=== PATIENT | male | born 1990 | race Caucasian/White ===

== ENCOUNTER 2016-09-12 19:52 | Inpatient (IN) | payer OTHER ==
[~2016-09-12] VITALS: Ht 170.2 cm; Wt 74.5 kg
[2016-09-12] MEDS ORDERED: SODIUM CHLORIDE 0.9% 1000ML 1,000 ML IV ONE (20:04)
[2016-09-12 20:41] LABS: BASO % 0.9 %; BASO ABS # 0.03 K/uL (0-0.2); COMPLETE YES; EOS % 0.3 %; HEMATOCRIT 37.9 % (42-52); IG% 0.3 %; LYMPH % 16.6 %; LYMPH ABS # 0.54 K/uL (1.2-3.4); MEAN CELL VOLUME 87.7 fL (80-100); MEAN CORPUSCULAR HEMOGLOBIN 30.1 pg (25-34); MEAN CORPUSCULAR HGB CONC 34.3 g/dl (32-36); MONO % 10.4 %; NEUT % 71.5 %; PLATELET COUNT 231 K/uL (130-400); RED BLOOD COUNT 4.32 M/uL (4.7-6.1); WHITE BLOOD COUNT 3.26 K/uL (4.8-10.8)
[2016-09-12 20:53] LABS: INR 1.1 (0.9-1.1); PARTIAL THROMBOPLASTIN RATIO 1.3; PROTHROMBIN TIME (PATIENT) 11.3 SECONDS (9.0-12.0)
[2016-09-12 21:00] LABS: BUN/CREATININE RATIO 8.5 (10-20); C-REACTIVE PROTEIN 8.82 mg/dl (0-0.29); CREATININE 0.99 mg/dl (0.60-1.40); POTASSIUM 3.4 mmol/L (3.5-5.1)
[2016-09-12 21:04] LABS: ALB/GLOB RATIO 1.1 (0.9-2); CKMB/CK RATIO 0.4 (0-3.0)
--- NOTE | 2016-09-12 21:05 | DIAGNOSTIC IMAGING REPORT ---
CHEST ONE VIEW PORTABLE CLINICAL HISTORY: Sepsis FEVER, CHILLS. COMPARISON STUDY: No previous studies for comparison. FINDINGS: The cardiac and mediastinal contours are normal. There is no evidence of focal pulmonary consolidation. There is no evidence of failure. No pleural effusions are visualized.[ IMPRESSION: No active disease in the chest. Electronically signed by: Jerome Lopez M.D. 09/12/2016 9:03 PM Dictated Date/Time: 09/12/2016 9:03 PM
[2016-09-12 21:26] LABS: URINE APPEARANCE TURBID (CLEAR); URINE BILIRUBIN NEG (NEG); URINE COLOR DK YELLOW; URINE NITRITE NEG (NEG); URINE PH >= 9.0 (4.5-7.5); URINE SPECIFIC GRAVITY 1.021 (1.000-1.030); UROBILINOGEN NEG (NEG); ZZUR CULT IF INDIC CLEAN CATCH NO
[2016-09-12 21:32] LABS: MANUAL MICROSCOPIC REQUIRED? NO; REVIEW REQ? NO; SULFASALICYLIC ACID NEG (NEG)
[2016-09-12] MEDS ORDERED: KETOROLAC TROMETHAMINE 30 MG/ML VIAL IV STA (21:48)
[2016-09-12 21:52] LABS: CALCIUM 8.5 mg/dl (8.5-10.1)
[2016-09-12 22:02] LABS: LYME DISEASE AB IGG NEG (NEG); LYME DISEASE AB IGM NEG (NEG)
[2016-09-12] MEDS ORDERED: OPTIRAY 320 IV PRN (22:15)
--- NOTE | 2016-09-12 22:15 | DIAGNOSTIC IMAGING REPORT ---
CT HEAD WITHOUT CONTRAST (CT) CLINICAL HISTORY: Severe headache COMPARISON STUDY: No previous studies for comparison. TECHNIQUE: Axial CT of the brain is performed from the vertex to the skull base. IV contrast was not administered for this examination. CT DOSE: FINDINGS: No intra or extra-axial mass lesions are visualized. There is no CT evidence of acute cortical infarction. There is no evidence of midline shift. There is no acute hemorrhage. No calvarial fractures are visualized. There is no evidence of pathologic ventricular dilatation. There is no evidence of acute sinusitis IMPRESSION: Normal noncontrast head CT. Electronically signed by: Jerome Lopez M.D. 09/12/2016 10:13 PM Dictated Date/Time: 09/12/2016 10:12 PM
--- NOTE | 2016-09-12 22:20 | DIAGNOSTIC IMAGING REPORT ---
CT ABD/PELVIS IV CONTRAST ONLY CLINICAL HISTORY: Generalized abdominal pain COMPARISON STUDY: None. TECHNIQUE: Following the IV administration of 115 mL of Optiray-320, CT scan of the abdomen and pelvis was performed from the lung bases to the proximal femurs. Images are reviewed in the axial, sagittal, and coronal planes. IV contrast was administered without complication. CT DOSE: 947.45 mGy.cm FINDINGS: Lower chest: The heart is normal in size and configuration, without pericardial effusion. The lung bases and pleural spaces are clear. Liver: The contrast-enhanced liver is normal in size, contour, and attenuation. There is no intrahepatic biliary ductal dilatation. The hepatic veins and portal veins are patent. Gallbladder: Unremarkable. Spleen: Normal in size and attenuation. Pancreas: Unremarkable. Adrenal glands: Unremarkable. Kidneys: There is symmetric renal cortical enhancement. The kidneys are normal in size without hydronephrosis. Bowel: There are no transition zones indicate bowel obstruction. The appendix appears normal. There is no acute diverticulitis. Peritoneum: There is no intraperitoneal free air or abdominal ascites. Vasculature: The abdominal aorta is normal in course and caliber. Slight increased density within the fat surrounding the celiac and superior mesenteric arteries, may be artifactual secondary to motion artifact Adenopathy: None. Pelvic viscera: The bladder, and pelvic viscera are unremarkable. Skeletal structures: No destructive osseous lesions are seen. The examination is slightly compromised secondary to motion artifact. IMPRESSION: 1. No acute intra-abdominal or pelvic findings 2. No evidence of bowel obstruction. No evidence of free air 3. Normal appendix. No evidence of acute diverticulitis Electronically signed by: Jerome Lopez M.D. 09/12/2016 10:18 PM Dictated Date/Time: 09/12/2016 10:14 PM
[2016-09-12] MEDS ORDERED: CEFTRIAXONE SOD INJ 1 GM ADDVIAL IV STA (22:26)
--- NOTE | 2016-09-12 23:44 | EMERGENCY ROOM VISIT NOTE ---
History Report prepared by Stanleyibjessica: Edwin Phelan Under the Supervision of: Dr. Saroj White D.O. First contact with patient: 19:59 Chief Complaint: FLANK PAIN Stated Complaint: ORANGE URINE - FEVER - [id number] PAIN History of Present Illness The patient is a 26 year old male who presents to the Emergency Room with complaints of a persistent fever beginning a few days ago. He also complains of abdominal pain, back pain, nausea, chills, and headache. He states that his urine appears orange in appearance. The patient also complains of night sweats. He notes that he has had very little to eat recently. He states that his symptoms began with his headache three days ago. The patient denies any cough. He chews tobacco and smokes marijuana. He states that he drinks alcohol occasionally. The patient denies any recent falls or trauma. He denies any recent travel. He also notes that he had a rash located on his abdomen earlier this week, but states that it is gone. Source of History: patient Onset: a few days ago Quality: other (fevers) Timing: other (persistent) Associated Symptoms: + fevers, + chills, + headache, + abdominal pain, + back pain, No cough Review of Systems See HPI for pertinent positives & negatives. A total of 10 systems reviewed and were otherwise negative. Past Medical & Surgical Medical Problems: (1) FUO (fever of unknown origin) (2) LFT elevation (3) No Known Active Medical Problems Family History No pertinent family history stated. Social History Smoking Status: Light Tobacco Smoker Occupation Status: employed Current/Historical Medications No Active Prescriptions or Reported Meds Allergies Coded Allergies: No Known Allergies (Unverified , 09/12/16) Physical Exam Vital Signs Date Time Temp Pulse Resp B/P (MAP) Pulse Ox O2 Delivery O2 Flow Rate FiO2 09/12/16 23:11 80 18 124/59 98 Room Air 09/12/16 21:10 128/63 09/12/16 20:26 97 Room Air 09/12/16 19:57 38.9 104 18 123/49 98 Room Air Physical Exam GENERAL: Patient is awake, alert, and in no acute distress. Patient is resting comfortably and showing no signs of anxiety EYES: The conjunctivae are clear. The pupils are round and reactive. EARS, NOSE, MOUTH AND THROAT: The nose is without any evidence of any deformity. Mucous membranes are dry, tongue is midline. Geographic tongue noted. NECK: The neck is nontender and supple. RESPIRATORY: Normal respiratory effort is noted there is no evidence of wheezing rhonchi or rales CARDIOVASCULAR: Tachycardic but regular. No definite murmurs noted to auscultation. GASTROINTESTINAL: The abdomen is soft with diffuse tenderness to palpation. Tenderness also noted in the RLQ but no guarding or rigidity appreciated. MUSCULOSKELETAL/EXTREMITIES: There is no evidence of gross deformity full range of motion is noted in the hips and shoulders SKIN: There is no obvious evidence of any rash. There are no petechiae, pallor or cyanosis noted. NEUROLOGIC: Patient is awake alert and oriented x3 strength is symmetric patellar reflexes are 2+ bilaterally. Medical Decision & Procedures ER Provider Diagnostic Interpretation: Radiology results as stated below per my review and radiologist interpretation: CHEST ONE VIEW PORTABLE FINDINGS: The cardiac and mediastinal contours are normal. There is no evidence of focal pulmonary consolidation. There is no evidence of failure. No pleural effusions are visualized.[ IMPRESSION: No active disease in the chest. Electronically signed by: Jerome Lopez M.D. CT HEAD WITHOUT CONTRAST (CT) FINDINGS: No intra or extra-axial mass lesions are visualized. There is no CT evidence of acute cortical infarction. There is no evidence of midline shift. There is no acute hemorrhage. No calvarial fractures are visualized. There is no evidence of pathologic ventricular dilatation. There is no evidence of acute sinusitis IMPRESSION: Normal noncontrast head CT. Electronically signed by: Jerome Lopez M.D. CT ABD/PELVIS IV CONTRAST ONLY FINDINGS: Lower chest: The heart is normal in size and configuration, without pericardial effusion. The lung bases and pleural spaces are clear. Liver: The contrast-enhanced liver is normal in size, contour, and attenuation. There is no intrahepatic biliary ductal dilatation. The hepatic veins and portal veins are patent. Gallbladder: Unremarkable. Spleen: Normal in size and attenuation. Pancreas: Unremarkable. Adrenal glands: Unremarkable. Kidneys: There is symmetric renal cortical enhancement. The kidneys are normal in size without hydronephrosis. Bowel: There are no transition zones indicate bowel obstruction. The appendix appears normal. There is no acute diverticulitis. Peritoneum: There is no intraperitoneal free air or abdominal ascites. Vasculature: The abdominal aorta is normal in course and caliber. Slight increased density within the fat surrounding the celiac and superior mesenteric arteries, may be artifactual secondary to motion artifact Adenopathy: None. Pelvic viscera: The bladder, and pelvic viscera are unremarkable. Skeletal structures: No destructive osseous lesions are seen. The examination is slightly compromised secondary to motion artifact. IMPRESSION: 1. No acute intra-abdominal or pelvic findings 2. No evidence of bowel obstruction. No evidence of free air 3. Normal appendix. No evidence of acute diverticulitis Electronically signed by: Jerome Lopez M.D. Laboratory Results Test 09/12/16 20:25 09/12/16 20:32 09/12/16 21:03 Immature Granulocyte % (Auto) 0.3 % White Blood Count 3.26 K/uL (4.8-10.8) Red Blood Count 4.32 M/uL (4.7-6.1) Hemoglobin 13.0 g/dL (14.0-18.0) Hematocrit 37.9 % (42-52) Mean Corpuscular Volume 87.7 fL (80-100) Mean Corpuscular Hemoglobin 30.1 pg (25-34) Mean Corpuscular Hemoglobin Concent 34.3 g/dl (32-36) Platelet Count 231 K/uL (130-400) Mean Platelet Volume 9.0 fL (7.4-10.4) Neutrophils (%) (Auto) 71.5 % Lymphocytes (%) (Auto) 16.6 % Monocytes (%) (Auto) 10.4 % Eosinophils (%) (Auto) 0.3 % Basophils (%) (Auto) 0.9 % Neutrophils # (Auto) 2.33 K/uL (1.4-6.5) Lymphocytes # (Auto) 0.54 K/uL (1.2-3.4) Monocytes # (Auto) 0.34 K/uL (0.11-0.59) Eosinophils # (Auto) 0.01 K/uL (0-0.5) Basophils # (Auto) 0.03 K/uL (0-0.2) Immature Granulocyte # (Auto) 0.01 K/uL (0.00-0.02) Erythrocyte Sedimentation Rate 6 mm/hr (0-14) Prothrombin Time 11.3 SECONDS (9.0-12.0) Prothromb Time International Ratio 1.1 (0.9-1.1) Activated Partial Thromboplast Time 33.8 SECONDS (21.0-31.0) Partial Thromboplastin Ratio 1.3 Creatine Kinase MB 1.8 ng/ml (0.5-3.6) Creatine Kinase MB Ratio 0.4 (0-3.0) C-Reactive Protein 8.82 mg/dl (0-0.29) Globulin 3.3 gm/dl (2.5-4.0) Albumin/Globulin Ratio 1.1 (0.9-2) Lipase 81 U/L (73-393) Lyme Disease IgG Antibody NEG (NEG) Lyme Disease IgM Antibody NEG (NEG) Hepatitis B Surface Antigen NEG (NEG) Hepatitis C Antibody PRELIM POS (NEG) Monoscreen NEG (NEG) Bedside Lactic Acid Venous 0.65 mmol/L (0.90-1.70) Urine Color DK YELLOW Urine Appearance TURBID (CLEAR) Urine pH >= 9.0 (4.5-7.5) Urine Specific [place] 1.021 (1.000-1.030) Urine Protein NEG (NEG) Urine Glucose (UA) NEG (NEG) Urine Ketones TRACE (NEG) Urine Occult Blood NEG (NEG) Urine Nitrite NEG (NEG) Urine Bilirubin NEG (NEG) Urine Urobilinogen NEG (NEG) Urine Leukocyte Esterase TRACE (NEG) Urine WBC (Auto) 0 /hpf (0-5) Urine RBC (Auto) 0-4 /hpf (0-4) Urine Hyaline Casts (Auto) 0 /lpf (0-5) Urine Epithelial Cells (Auto) 5-10 /lpf (0-5) Urine Bacteria (Auto) NEG (NEG) Laboratory results per my review. Medications Administered Medications (Trade) Dose Ordered Sig/Lise Route Start Time Stop Time Status Last Admin Dose Admin Sodium Chloride 1,000 ml @ 999 mls/hr Q1H1M ONCE IV 09/12/16 20:04 09/12/16 21:04 DC 09/12/16 20:04 999 MLS/HR Ketorolac Tromethamine (Toradol Inj) 30 mg NOW STAT IV 09/12/16 21:48 09/12/16 21:49 DC 09/12/16 21:48 30 MG Ceftriaxone Sodium (Rocephin Inj) 1 gm NOW STAT IV 09/12/16 22:26 09/13/16 11:14 DC 6/21/17 22:26 1 GM ED Course 2003: The patient was evaluated in room A2. A complete history and physical examination were performed. 2003: Ordered NSS 1,000 ml @ 999 mls/hr IV. 2147: Ordered Toradol Inj 30 mg IV. 2225: Ordered Rocephin Inj 1 gm IV. 2315: Upon reevaluation, the patient is resting comfortably. I discussed his case with him. He admits to a history of IV drug use. I discussed results and treatment plan with the patient. He verbalizes agreement and understanding. I spoke with Dr. Agudelo of [facility] [place] The patient will be evaluated for further management and care. Medical Decision Differential diagnosis: Etiologies such as viral syndrome, otitis, pharyngitis, pneumonia, influenza, meningitis, urinary tract infection, sepsis, bacteremia, as well as others were entertained. Nursing notes reviewed. Additional history is obtained from the patient's significant other. The patient is a 26-year-old male who presented to the emergency department for an evaluation of fever headache muscle aches and abdominal pain. The patient does have a history of IV drug use in the past. The patient also noted a rash over his abdominal wall and was concerned about the possibility of a tick borne illness. The patient was treated with IV fluids IV pain medicine and IV antibiotic emergency department. He was reevaluated multiple times. I discussed patient's laboratory and radiographic studies with him. No definite source for his fever could be found but he did have a mild elevation in his liver function studies and a preliminary positive hepatitis C. Because of the patient's comorbidities and past medical history and no definite source for his fever I discussed his case with the on-call [facility] hospitalist. They've agreed to evaluate the patient in the emergency department for further management and disposition. Consults Time Called: [phone] Consulting Physician: Dr. Agudelo -[facility] [place] Returned Call: [phone] I discussed the patient's case with []. The patient will be evaluated for further management. Impression Primary Impression: Fever of unknown origin Additional Impressions: Hepatitis IV drug abuse Scribe Attestation The scribe's documentation has been prepared under my direction and personally reviewed by me in its entirety. I confirm that the note above accurately reflects all work, treatment, procedures, and medical decision making performed by me. Departure Information Dispostion Being Evaluated By Hospitalist Prescriptions No Active Prescriptions or Reported Meds Referrals No Doctor, Assigned (PCP) Patient Instructions My [facility] Problem Qualifiers
[2016-09-13] MEDS ORDERED: POLYETHYLENE (MIRALAX) 17 GM PACK PO PRN (01:00)
[2016-09-13] MEDS ORDERED: ONDANSETRON INJ 2 MG/ML 2 ML VIAL IV PRN (01:00)
[2016-09-13] MEDS ORDERED: ALUMINUM/MAGNESIUM/SIMETH (MAALOX MAX) 30 ML UDC PO PRN (01:00)
[2016-09-13] MEDS ORDERED: MAGNESIUM HYDROXIDE SUSP 30 ML UDC PO PRN (01:00)
--- NOTE | 2016-09-13 01:53 | History and Physical ---
History & Physical Date & Time of Service: Sep 13, 2016 at 01:13 Chief Complaint: [place] Urine - Fever - [id number]-Hhdx Pain Primary Care Physician: No Doctor, Assigned History of Present Illness Source: patient 26 y/o M Hx IVDU - last use ~ 1 month prior. Presents with fevers and night sweats for 5 days. Describes drenching sweats over the last 2 nights. The pt states that on he had found a dear tick on himself after walking around a wooded area. He denies CP, SOB, a productive cough, diarrhea or dysuria. He states that his urine has been orange in color and reports some upper abdominal discomfort with inspiration. He had a generalized rash 5 days prior which has resolved. The pts LFTs were elevated on intial labs and a HEP C screen is preliminarily + . His CK is elevated and he has mild neutropenia and anemia. A fever of 39 was confirmed on arrival to the ER. There is no clear source of infection at present although he is at risk for endocarditis and tick-borne disease. Family History Both parents are living Father had an ablation procedure for SVT Mother recently diagnosed with [place] Social History Smokes Marijuana frequently - does not smoke cigarettes. Rare alcohol. History of opiate use since age 17. IVDU since age 20 - intermittent - last relapsed 25 days prior - denies any current use or withdrawal symptoms. Alcohol Use: occasionally Occupational Status: employed Multi-Drug Resistant Organisms History of MDRO: No Allergies Coded Allergies: No Known Allergies (Unverified , 09/12/16) Home Medications No Active Prescriptions or Reported Meds Review of Systems Constitutional: + fever, + chills, + sweats, No weight loss Eyes: No worsening of vision, No eye pain ENT: No hearing loss, No unusual epistaxis, No nasal symptoms Respiratory: No cough, No sputum, No wheezing Cardiovascular: No chest pain, No orthopnea, No PND Abdomen: + pain (Upper abdominal pain / discomfort with inspiration), No nausea , No vomiting Musculoskeletal: No joint pain, No muscle pain Genitourinary - Male: + problem reported (Reports orange urine), No hematuria, No dysuria Neurologic: No memory loss, No paralysis, No weakness Psychiatric: No depression symptoms Endocrine: No fatigue Hematologic / Lymphatic: No abnormal bleeding/bruising Integumentary: + rash (generalized rash 5 days prior) Allergic / Immunologic: No environmental allergies Physical Exam Vital Signs Date Time Temp Pulse Resp B/P (MAP) Pulse Ox O2 Delivery O2 Flow Rate FiO2 09/12/16 23:11 80 18 124/59 98 Room Air 09/12/16 21:10 128/63 09/12/16 20:26 97 Room Air 09/12/16 19:57 38.9 104 18 123/49 98 Room Air General Appearance: WD/WN, no apparent distress Head: normocephalic Eyes: normal inspection ENT: normal ENT inspection, pharynx normal Neck: supple, no JVD Respiratory/Chest: chest non-tender, lungs clear, normal breath sounds, no respiratory distress, no accessory muscle use Cardiovascular: regular rate, rhythm, no edema, no gallop Abdomen/GI: normal bowel sounds, non tender, soft Back: normal inspection, no CVA tenderness, no muscle spasm, normal range of motion Extremities/Musculoskelatal: normal inspection, normal range of motion Neurologic/Psych: endless bed drum sander II-XII nml as tested, no motor/sensory deficits, alert, normal mood/affect, normal reflexes, oriented x 3 Skin: normal color, warm/dry, no rash Diagnostics Laboratory Results Results Past 24 Hours Test 09/12/16 20:25 09/12/16 20:32 09/12/16 21:03 Range/Units White Blood Count 3.26 4.8-10.8 K/uL Red Blood Count 4.32 4.7-6.1 M/uL Hemoglobin 13.0 14.0-18.0 g/dL Hematocrit 37.9 42-52 % Mean Corpuscular Volume 87.7 80-100 fL Mean Corpuscular Hemoglobin 30.1 25-34 pg Mean Corpuscular Hemoglobin Concent 34.3 32-36 g/dl Platelet Count 231 130-400 K/uL Mean Platelet Volume 9.0 7.4-10.4 fL Neutrophils (%) (Auto) 71.5 % Lymphocytes (%) (Auto) 16.6 % Monocytes (%) (Auto) 10.4 % Eosinophils (%) (Auto) 0.3 % Basophils (%) (Auto) 0.9 % Neutrophils # (Auto) 2.33 1.4-6.5 K/uL Lymphocytes # (Auto) 0.54 1.2-3.4 K/uL Monocytes # (Auto) 0.34 0.11-0.59 K/uL Eosinophils # (Auto) 0.01 0-0.5 K/uL Basophils # (Auto) 0.03 0-0.2 K/uL RDW Standard Deviation 40.8 36.4-46.3 fL RDW Coefficient of Variation 12.6 11.5-14.5 % Immature Granulocyte % (Auto) 0.3 % Immature Granulocyte # (Auto) 0.01 0.00-0.02 K/uL Erythrocyte Sedimentation Rate 6 0-14 mm/hr Prothrombin Time 11.3 9.0-12.0 SECONDS Prothromb Time International Ratio 1.1 0.9-1.1 Activated Partial Thromboplast Time 33.8 21.0-31.0 SECONDS Partial Thromboplastin Ratio 1.3 Sodium Level 137 136-145 mmol/L Potassium Level 3.4 3.5-5.1 mmol/L Chloride Level 101 98-107 mmol/L Carbon Dioxide Level 28 21-32 mmol/L Anion Gap 8.0 3-11 mmol/L Blood Urea Nitrogen 8 7-18 mg/dl Creatinine 0.99 0.60-1.40 mg/dl Est Creatinine Clear Calc Drug Dose 106.7 ml/min Estimated GFR () 122.2 Estimated GFR (Non- 105.4 BUN/Creatinine Ratio 8.5 10-20 Random Glucose 102 70-99 mg/dl Calcium Level 8.5 8.5-10.1 mg/dl Magnesium Level 2.0 1.8-2.4 mg/dl Total Bilirubin 0.7 0.2-1 mg/dl Aspartate Amino Transf (AST/SGOT) 345 15-37 U/L Alanine Aminotransferase (ALT/SGPT) 635 12-78 U/L Alkaline Phosphatase 72 45-117 U/L Total Creatine Kinase 494 39-308 U/L Creatine Kinase MB 1.8 0.5-3.6 ng/ml Creatine Kinase MB Ratio 0.4 0-3.0 C-Reactive Protein 8.82 0-0.29 mg/dl Total Protein 7.0 6.4-8.2 gm/dl Albumin 3.7 3.4-5.0 gm/dl Globulin 3.3 2.5-4.0 gm/dl Albumin/Globulin Ratio 1.1 0.9-2 Lipase 81 73-393 U/L Lyme Disease IgG Antibody NEG NEG Lyme Disease IgM Antibody NEG NEG Hepatitis B Surface Antigen NEG NEG Hepatitis C Antibody PRELIM POS NEG Monoscreen NEG NEG Bedside Lactic Acid Venous 0.65 0.90-1.70 mmol/L Urine Color DK YELLOW Urine Appearance TURBID CLEAR Urine pH >= 9.0 4.5-7.5 Urine Specific [place] 1.021 1.000-1.030 Urine Protein NEG NEG Urine Glucose (UA) NEG NEG Urine Ketones TRACE NEG Urine Occult Blood NEG NEG Urine Nitrite NEG NEG Urine Bilirubin NEG NEG Urine Urobilinogen NEG NEG Urine Leukocyte Esterase TRACE NEG Urine WBC (Auto) 0 0-5 /hpf Urine RBC (Auto) 0-4 0-4 /hpf Urine Hyaline Casts (Auto) 0 0-5 /lpf Urine Epithelial Cells (Auto) 5-10 0-5 /lpf Urine Bacteria (Auto) NEG NEG Microbiology Results 09/12/16 Blood Culture, Received Pending 09/12/16 Blood Culture, Received Pending Impression Assessment and Plan 26 y/o M Hx IVDU - last use ~ 1 month prior. Presents with fevers and night sweats for 5 days. Describes drenching sweats over the last 2 nights. The pt states that on he had found a dear tick on himself after walking around a wooded area. He denies CP, SOB, a productive cough, diarrhea or dysuria. He states that his urine has been orange in color and reports some upper abdominal discomfort with inspiration. He had a generalized rash 5 days prior which has resolved. The pts LFTs were elevated on intial labs and a HEP C screen is preliminarily + . His CK is elevated and he has mild neutropenia and anemia. A fever of 39 was confirmed on arrival to the ER. There is no clear source of infection at present although he is at risk for endocarditis and tick-borne disease. 1) FUO - differential would include subacute endocarditis, tick-borne illness, HIV or other viral infection. Pt placed on Ceftriaxone and Vanc pending blood culture and blood smear results. We will consult ID. If cultures are +, would obtain an echo. Parvovirus, EBV, HIV testing requested. 2) Hep C +, LFTs elevated - explained to pt that treatment is available - will trend LFTs as may be in acute phase 3) CK is elevated - may be developing mild rhabdo - aggressive IVF - recheck AM 4) IVDU - states he is not currently using - has not expressed need for treatment Full code - Heparin prophylaxis - total time for this admit including review of labs, meds, imaging - discussion with pt and ER attending 36 min Level of Care Med/Surg Resuscitation Status FULL RESUSCITATION VTE Prophylaxis VTE Risk Assessment Done? Y/N: Yes Risk Level: Moderate Given or contraindicated: Unfractionated heparin SQ
[2016-09-13 02:00] VITALS: BP 123/70; PULSE 71; TEMP 36.9; O2SAT 99; Ht 170.2 cm; Wt 74.5 kg
[2016-09-13] MEDS: ZOLPIDEM TARTRATE 5 MG TAB PO PRN ×2 (02:24→23:42)
[2016-09-13] MEDS ORDERED: VANCOMYCIN INJ 2,000 MG in SODIUM CHLORIDE 0.9% 500ML 500 ML IV STA (02:40)
[2016-09-13] MEDS ORDERED: VANCOMYCIN CONSULT ACTIVE PRN (02:45)
[2016-09-13] MEDS: NSS + 20MEQ KCL 1000ML 1,000 ML IV SCH ×2 (03:19→09:52)
[2016-09-13] MEDS: ACETAMINOPHEN 325 MG TAB PO PRN ×2 (05:14→16:01)
[2016-09-13] MEDS: HEPARIN SOD 5000 UNIT/0.5 ML CARP SQ SCH ×3 (06:30→21:27)
[2016-09-13 07:10] VITALS: BP 114/68; PULSE 91; TEMP 36.8; O2SAT 96
[2016-09-13 07:29] LABS: HEMATOCRIT 38.2 % (42-52); MEAN CELL VOLUME 88.8 fL (80-100); MEAN CORPUSCULAR HEMOGLOBIN 29.8 pg (25-34); MEAN CORPUSCULAR HGB CONC 33.5 g/dl (32-36); PLATELET COUNT 190 K/uL (130-400); WHITE BLOOD COUNT 3.15 K/uL (4.8-10.8)
[2016-09-13 08:03] LABS: BUN/CREATININE RATIO 8.4 (10-20); CALCIUM 7.9 mg/dl (8.5-10.1); CREATININE 0.93 mg/dl (0.60-1.40); MAGNESIUM 2.1 mg/dl (1.8-2.4); POTASSIUM 3.2 mmol/L (3.5-5.1)
--- NOTE | 2016-09-13 09:04 | Pharmacy Progress Note ---
Pharmacy Abx Initial Consult Date of Service Sep 13, 2016. Pharmacy Dosing Scope Date of Consult: 09-13 Consultation requested by: Dr. Agudelo Pharmacy is consulted to initiate vancomycin dosing therapy, order appropriate labs and adjust drug dose/frequency. Subjective The patient is a 26 year old male admitted on Sep 13, 2016 at 00:50. Objective Height (Feet): 5 Height (Inches): 7.00 Weight (Kilograms): 74.500 Vital Signs (Past 12Hrs) Vital Signs Past 12 Hours Date Time Temp Pulse Resp B/P (MAP) Pulse Ox O2 Delivery O2 Flow Rate FiO2 09/13/16 08:00 Room Air 09/13/16 07:10 36.8 91 16 114/68 (83) 96 Room Air 09/13/16 02:00 36.9 71 20 123/70 99 Room Air 09/13/16 01:10 81 18 124/59 98 09/12/16 23:11 80 18 124/59 98 Room Air 09/12/16 21:10 128/63 Lab Results (24Hrs) Laboratory Tests (24 Hours) Test 09/12/16 20:25 09/13/16 07:12 C-Reactive Protein 8.82 mg/dl (0-0.29) H Erythrocyte Sedimentation Rate 6 mm/hr (0-14) White Blood Count 3.26 K/uL (4.8-10.8) L 3.15 K/uL (4.8-10.8) L Red Blood Count 4.32 M/uL (4.7-6.1) L Hemoglobin 13.0 g/dL (14.0-18.0) L Hematocrit 37.9 % (42-52) L Mean Corpuscular Volume 87.7 fL (80-100) Mean Corpuscular Hemoglobin 30.1 pg (25-34) Mean Corpuscular Hemoglobin Concent 34.3 g/dl (32-36) Platelet Count 231 K/uL (130-400) Mean Platelet Volume 9.0 fL (7.4-10.4) Neutrophils (%) (Auto) 71.5 % Lymphocytes (%) (Auto) 16.6 % Monocytes (%) (Auto) 10.4 % Eosinophils (%) (Auto) 0.3 % Basophils (%) (Auto) 0.9 % Neutrophils # (Auto) 2.33 K/uL (1.4-6.5) Lymphocytes # (Auto) 0.54 K/uL (1.2-3.4) L Monocytes # (Auto) 0.34 K/uL (0.11-0.59) Eosinophils # (Auto) 0.01 K/uL (0-0.5) Basophils # (Auto) 0.03 K/uL (0-0.2) Total Creatine Kinase 414 U/L (39-308) H Micro Results Date/Time Source Procedure Growth Status 09/12/16 20:25 Blood Blood Culture Pending Received 09/12/16 20:18 Blood Blood Culture Pending Received Assessment & Plan Patient started on vancomycin to rule out endocarditis infection. Presented to ED with fever, night sweats x 5 days, hx of IV drug abuse, recent tick exposure. Blood cultures are pending. Patient also receiving rocephin. Vancomycin: * LD of vancomycin 2000 mg (~26 mg/kg) iv x 1 given * Will order MD of vancomycin 1250 mg (~16 mg/kg) iv q 8 hrs to achieve an estimated trough ~15-20 mcg/ml (goal for endocarditis) * Estimated kinetics: t1/2~7 hrs, ke~0.09 hr-1, CrCl ~113 ml/min * Will plan to order trough prior to the 1000 dose on 09/14 to ensure therapeutic * Of note, abx ordered as empiric (x48 hr) therefore will adjust duration as needed
[2016-09-13] MEDS ORDERED: POTASSIUM CHLORIDE 10 MEQ TABCR PO STA (09:07)
[2016-09-13] MEDS ORDERED: VANCOMYCIN INJ 1,250 MG in SODIUM CHLORIDE 0.9% 250ML 250 ML IV SCH (10:00)
--- NOTE | 2016-09-13 11:17 | Medical Consult ---
Consultation Date of Consultation: Sep 13, 2016. Attending Physician: Jasmine Cam MD Reason for Consultation: FUO x 5 days History of Present Illness Patient is a 26-year-old male who presented to the emergency department with complaints of a fever for approximately 5 days. The patient been experiencing mild abdominal pain in the upper quadrants especially the right, mid back pain, nausea, chills, headache, myalgias, orange urine, and night. The patient states that his appetite recently has also been decreased. The patient does have history of IV drug abuse, and he does also use marijuana and chewing tobacco. The patient states that on , he did find a tick on himself and had to remove this tick. He does not recall any other tick bites recently. He does also recall having a rash on his abdomen prior to admission which has since resolved. His rash was round and speckled in nature. Since admission, the patient does have blood cultures drawn which are pending. He had a hepatitis panel completed. Hepatitis-B E was negative, but preliminary hepatitis C is positive. [place] screen was negative. Lyme screens were negative. The patient is mildly pancytopenic. His ESR was 6, and C reactive protein was 8.82. His LFTs are slightly elevated. On admission, his AST was 345, ALT 635, and alkaline phosphatase was 72. His total creatinine kinase was 494. His creatinine was 0.99. Urinalysis showed trace leukocyte esterase, trace ketones, and a pH of greater than 9. CT of the abdomen/pelvis showed no acute intra-abdominal or pelvic findings, no evidence of bowel obstruction, and normal appendix and gallbladder. The liver was noted to be. He did have a head CT scan completed which was normal. Chest x-ray showed no active disease in the chest. He was empirically started on IV vancomycin and ceftriaxone. He states that his symptoms have only slightly improved. He did have a fever of 38.9 C on admission. He has been afebrile since. The patient otherwise denies icterus, jaundice, jojo-colored stools, or abdominal pain prior to this episode. Past Medical/Surgical History Medical Problems: (1) Fever of unknown origin Status: Acute (2) Hepatitis Status: Acute (3) IV drug abuse Status: Acute Medical Problems: (1) FUO (fever of unknown origin) (2) LFT elevation (3) No Known Active Medical Problems Family History Noncontributory Social History Smoking Status: Unknown if Ever Smoked Alcohol Use: occasionally Occupation Status: employed Allergies Coded Allergies: No Known Allergies (Unverified , 09/12/16) Current Inpatient Medications Current Inpatient Medications Medications (Trade) Dose Ordered Sig/Lise Route Start Time Stop Time Status Last Admin Dose Admin Ioversol (Optiray 320) 115 ml UD PRN IV 09/12/16 22:15 09/16/16 22:14 Heparin Sodium (Porcine) (Heparin Sq 5000 Unit/0.5ml) 5,000 unit Q8H SQ 09/13/16 06:00 10/13/16 05:59 Acetaminophen (Tylenol Tab) 650 mg Q4H PRN PO 09/13/16 01:00 10/13/16 00:59 09/13/16 05:14 650 MG Al Hydrox/Mg Hydrox/Simethicone (Maalox Max Susp) 15 ml Q4H PRN PO 09/13/16 01:00 10/13/16 00:59 Magnesium Hydroxide (Milk Of Magnesia Susp) 30 ml Q6H PRN PO 09/13/16 01:00 10/13/16 00:59 Polyethylene (Miralax Powder Packet) 17 gm DAILY PRN PO 09/13/16 01:00 10/13/16 00:59 Zolpidem Tartrate (Ambien Tab) 5 mg HSZ PRN PO 09/13/16 01:00 10/13/16 00:59 09/13/16 02:24 5 MG Ondansetron HCl (Zofran Inj) 4 mg Q6H PRN IV 09/13/16 01:00 10/13/16 00:59 Ceftriaxone Sodium 1 gm/ Dextrose 50 ml @ 100 mls/hr Q24H IV 09/13/16 22:00 09/14/16 21:59 Potassium Chloride/Sodium Chloride 1,000 ml @ 150 mls/hr Q6H40M IV 09/13/16 03:00 09/13/16 16:19 09/13/16 09:52 150 MLS/HR Vancomycin HCl (Consult) 1 ea UD PRN N/A 09/13/16 02:45 10/13/16 02:44 Vancomycin HCl 1250 mg/Sodium Chloride 275 ml @ 125 mls/hr Q8H IV 09/13/16 10:00 09/15/16 09:59 09/13/16 09:51 125 MLS/HR Review of Systems Constitutional: + fever, + chills, + sweats, + fatigue, + problem reported ( headache) Eyes: No worsening of vision ENT: + problem reported (tongue discoloration, white on and off, chews tobacco chronically), No hearing loss, No sore throat Respiratory: + problem reported (abdominal pain with deep breath), No cough, No shortness of breath Cardiovascular: No chest pain, No palpitations Abdomen: + pain, No nausea, No vomiting, No diarrhea, No constipation, No problem reported (no jojo colored stools/stool changes) Musculoskeletal: + muscle pain (aches), No joint pain Genitourinary - Male: + problem reported (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), No hematuria, No dysuria, No urinary frequency, No urinary urgency Neurologic: No numbness/tingling Hematologic / Lymphatic: + night sweats Integumentary: + rash (on abdomen which was round and speckled, now resolved) Physical Exam Date Time Temp Pulse Resp B/P (MAP) Pulse Ox O2 Delivery O2 Flow Rate FiO2 09/13/16 08:00 Room Air 09/13/16 07:10 36.8 91 16 114/68 (83) 96 Room Air 09/13/16 02:00 36.9 71 20 123/70 99 Room Air 09/13/16 01:10 81 18 124/59 98 09/12/16 23:11 80 18 124/59 98 Room Air 09/12/16 21:10 128/63 09/12/16 20:26 97 Room Air 09/12/16 19:57 38.9 104 18 123/49 98 Room Air General Appearance: WD/WN, no apparent distress Head: normocephalic, atraumatic Eyes: normal inspection, sclerae normal ENT: hearing grossly normal Neck: supple, trachea midline Respiratory/Chest: chest non-tender, lungs clear, normal breath sounds, no respiratory distress, no accessory muscle use Cardiovascular: regular rate, rhythm, no murmur Abdomen/GI: normal bowel sounds, soft, no organomegaly, + tenderness (right upper quadrant especially with deep breath) Back: normal inspection Extremities/Musculoskelatal: normal inspection, normal range of motion Neurologic/Psych: alert, normal mood/affect, oriented x 3 Skin: normal color, warm/dry, no rash Laboratory Results CT ABD/PELVIS IV CONTRAST ONLY CLINICAL HISTORY: Generalized abdominal pain COMPARISON STUDY: None. TECHNIQUE: Following the IV administration of 115 mL of Optiray-320, CT scan of the abdomen and pelvis was performed from the lung bases to the proximal femurs. Images are reviewed in the axial, sagittal, and coronal planes. IV contrast was administered without complication. CT DOSE: 947.45 mGy.cm FINDINGS: Lower chest: The heart is normal in size and configuration, without pericardial effusion. The lung bases and pleural spaces are clear. Liver: The contrast-enhanced liver is normal in size, contour, and attenuation. There is no intrahepatic biliary ductal dilatation. The hepatic veins and portal veins are patent. Gallbladder: Unremarkable. Spleen: Normal in size and attenuation. Pancreas: Unremarkable. Adrenal glands: Unremarkable. Kidneys: There is symmetric renal cortical enhancement. The kidneys are normal in size without hydronephrosis. Bowel: There are no transition zones indicate bowel obstruction. The appendix appears normal. There is no acute diverticulitis. Peritoneum: There is no intraperitoneal free air or abdominal ascites. Vasculature: The abdominal aorta is normal in course and caliber. Slight increased density within the fat surrounding the celiac and superior mesenteric arteries, may be artifactual secondary to motion artifact Adenopathy: None. Pelvic viscera: The bladder, and pelvic viscera are unremarkable. Skeletal structures: No destructive osseous lesions are seen. The examination is slightly compromised secondary to motion artifact. IMPRESSION: 1. No acute intra-abdominal or pelvic findings 2. No evidence of bowel obstruction. No evidence of free air 3. Normal appendix. No evidence of acute diverticulitis Item Value Date Time Blood Culture Received 09/12/162024 Blood Pending Blood Culture Received 09/12/162017 Blood Pending Last 24 Hours Test 09/12/16 20:25 09/12/16 20:32 09/12/16 21:03 09/13/16 07:12 White Blood Count 3.26 K/uL 3.15 K/uL Red Blood Count 4.32 M/uL 4.30 M/uL Hemoglobin 13.0 g/dL 12.8 g/dL Hematocrit 37.9 % 38.2 % Mean Corpuscular Volume 87.7 fL 88.8 fL Mean Corpuscular Hemoglobin 30.1 pg 29.8 pg Mean Corpuscular Hemoglobin Concent 34.3 g/dl 33.5 g/dl Platelet Count 231 K/uL 190 K/uL Mean Platelet Volume 9.0 fL 9.0 fL Neutrophils (%) (Auto) 71.5 % Lymphocytes (%) (Auto) 16.6 % Monocytes (%) (Auto) 10.4 % Eosinophils (%) (Auto) 0.3 % Basophils (%) (Auto) 0.9 % Neutrophils # (Auto) 2.33 K/uL Lymphocytes # (Auto) 0.54 K/uL Monocytes # (Auto) 0.34 K/uL Eosinophils # (Auto) 0.01 K/uL Basophils # (Auto) 0.03 K/uL RDW Standard Deviation 40.8 fL 41.6 fL RDW Coefficient of Variation 12.6 % 12.9 % Immature Granulocyte % (Auto) 0.3 % Immature Granulocyte # (Auto) 0.01 K/uL Erythrocyte Sedimentation Rate 6 mm/hr Prothrombin Time 11.3 SECONDS Prothromb Time International Ratio 1.1 Activated Partial Thromboplast Time 33.8 SECONDS Partial Thromboplastin Ratio 1.3 Sodium Level 137 mmol/L 141 mmol/L Potassium Level 3.4 mmol/L 3.2 mmol/L Chloride Level 101 mmol/L 107 mmol/L Carbon Dioxide Level 28 mmol/L 26 mmol/L Anion Gap 8.0 mmol/L 8.0 mmol/L Blood Urea Nitrogen 8 mg/dl 8 mg/dl Creatinine 0.99 mg/dl 0.93 mg/dl Est Creatinine Clear Calc Drug Dose 106.7 ml/min 113.6 ml/min Estimated GFR () 122.2 131.8 Estimated GFR (Non- 105.4 113.7 BUN/Creatinine Ratio 8.5 8.4 Random Glucose 102 mg/dl 135 mg/dl Calcium Level 8.5 mg/dl 7.9 mg/dl Magnesium Level 2.0 mg/dl 2.1 mg/dl Total Bilirubin 0.7 mg/dl 0.6 mg/dl Aspartate Amino Transf (AST/SGOT) 345 U/L 344 U/L Alanine Aminotransferase (ALT/SGPT) 635 U/L 612 U/L Alkaline Phosphatase 72 U/L 69 U/L Total Creatine Kinase 494 U/L 414 U/L Creatine Kinase MB 1.8 ng/ml Creatine Kinase MB Ratio 0.4 C-Reactive Protein 8.82 mg/dl Total Protein 7.0 gm/dl 6.1 gm/dl Albumin 3.7 gm/dl 3.1 gm/dl Globulin 3.3 gm/dl Albumin/Globulin Ratio 1.1 Lipase 81 U/L Lyme Disease IgG Antibody NEG Lyme Disease IgM Antibody NEG Hepatitis B Surface Antigen NEG Hepatitis C Antibody PRELIM POS Monoscreen NEG Bedside Lactic Acid Venous 0.65 mmol/L Urine Color DK YELLOW Urine Appearance TURBID Urine pH >= 9.0 Urine Specific [place] 1.021 Urine Protein NEG Urine Glucose (UA) NEG Urine Ketones TRACE Urine Occult Blood NEG Urine Nitrite NEG Urine Bilirubin NEG Urine Urobilinogen NEG Urine Leukocyte Esterase TRACE Urine WBC (Auto) 0 /hpf Urine RBC (Auto) 0-4 /hpf Urine Hyaline Casts (Auto) 0 /lpf Urine Epithelial Cells (Auto) 5-10 /lpf Urine Bacteria (Auto) NEG Direct Bilirubin 0.2 mg/dl Assessment & Plan Patient with mild pancytopenia, fever, elevated LFTs, recent tick exposure, 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 The patient is currently on IV Vancomycin and Ceftriaxone. Lyme screens were negative. This patient's picture is slightly confused by the positive Hep C screen. Most of his symptoms and lab value changes coult be contributed to Hepatitis C, but on the other hand with recent tick exposure, could be contributed to Anaplasmosis. Recommend D/C of Vancomycin and Ceftriaxone. Will start PO Doxycycline 100 mg BID x 14 days for possible anaplasmosis. Will await confirmatory tests for Hep C and treat as outpatient if positive. Will also order Anaplasma serology. We will follow. case reviewed and agree with above assessment
[2016-09-13] MEDS: DOXYCYCLINE HYCLATE 100 MG CAP PO SCH ×2 (12:41→20:43)
[2016-09-13 15:55] VITALS: BP 111/68; PULSE 67; TEMP 37.3; O2SAT 99
[2016-09-13 16:00] VITALS: O2SAT 99
[2016-09-13] MEDS ORDERED: CEFTRIAXONE SOD INJ 2,000 MG in DEXTROSE 5% 50ML 50 ML IV SCH (21:00)
[2016-09-13] MEDS ORDERED: CEFTRIAXONE SOD INJ 1 GM in DEXTROSE 5% ADD-VANTAGE 50ML 50 ML IV SCH (22:00)
--- NOTE | 2016-09-13 23:13 | Progress Note ---
Progress Note Date of Service Sep 13, 2016. Progress Note Pt admitted after midnight. Chart reviewed, pt seen and examined. He is afebrile since admission when was febrile in ER. He feels much better. Headaches are gone. Reports he started with fevers and headaches about 5-6 days ago and did have a red circular rash on left lower abdomen 2 weeks ago. He denies any new joint pains over his chronic right knee and ankle injuries that are chronic. Last IVDA was 27 days ago. Discussed prelim +Hep C and need for confirmatory testing. LFTs remain elevated and remains mildly leukopenic. VSS NAD, pleasant, healthy appearing RRR no mgr CTAB no wcr Abd +BS, +TTP LUQ without guarding or rebound, abd is soft, no splenomegaly or hepatomegaly Skin no rashes, with several tattoos 26 yo male with h/o IVDA, here with fevers x 5 days, headache, previous tick bite, leukopenia, transaminitis and mild elevation CK. Lyme titer neg, Monospot neg, Anaplasmosis titers pending Suspect tick borne illness but given IVDA and Hep C, could be Hep C acute infection or even SBE. ID made recommendation to stop Rocephin and Vanc and satrt po doxy alone. I am hesitant for him to not be covered for Strep bacteremia or SBE until BCxs negative for 48 hours. -restart Rocephin 2 gms q24h now and then pt requesting IV site be removed because tape is very irritating-I advised this was ok but if he ends up needing more IV meds, will have to restart IV site -continue doxy po for tick borne illness and covers for Staph -if BCxs negative at close to [address], can dc Rocephin and dc to home with close f/u in ID clinic Transaminitis--> could be from Anaplasmosis but also with Hep C prelim positive. Also mother with STAFFORD -follow LFTs , check Fe studies to r/o HH -follow Hep C RNA studies and f/u ID as outpt Proph-heparin Dispo- to home likely tomorrow
[2016-09-14 00:02] VITALS: BP 111/69; PULSE 62; TEMP 36.7; O2SAT 98
[2016-09-14] MEDS: HEPARIN SOD 5000 UNIT/0.5 ML CARP SQ SCH ×2 (05:36→12:52)
[2016-09-14 07:41] VITALS: BP 95/60; PULSE 58; TEMP 36.6; O2SAT 98
[2016-09-14 07:48] LABS: HEMATOCRIT 41.6 % (42-52); MEAN CELL VOLUME 89.5 fL (80-100); MEAN CORPUSCULAR HEMOGLOBIN 29.9 pg (25-34); MEAN CORPUSCULAR HGB CONC 33.4 g/dl (32-36); MEAN PLATELET VOLUME 9.6 fL (7.4-10.4); PLATELET COUNT 220 K/uL (130-400); RED BLOOD COUNT 4.65 M/uL (4.7-6.1); WHITE BLOOD COUNT 3.47 K/uL (4.8-10.8)
[2016-09-14 08:21] LABS: BASO ABS # 0.06 K/uL (0-0.2); BASOPHIL % 1.7 % (0-2); COMPLETE YES; EOSINOPHIL % 6.1 %; LYMPH ABS # 0.96 K/uL (1.2-3.4); LYMPHOCYTE % 27.8 %; NEUTROPHILS % 37.4 %; VARIANT LYM ABS # 0.42 K/uL; VARIANT LYMPHOCYTE % 12.2 %
[2016-09-14] MEDS: DOXYCYCLINE HYCLATE 100 MG CAP PO SCH (08:21)
[2016-09-14 08:38] LABS: C-REACTIVE PROTEIN 3.77 mg/dl (0-0.29); CALCIUM 8.5 mg/dl (8.5-10.1); FERRITIN 748.6 ng/ml (8.0-388.0); MAGNESIUM 2.3 mg/dl (1.8-2.4)
[2016-09-14] MEDS ORDERED: VANCOMYCIN TROUGH ONE (09:30)
--- NOTE | 2016-09-14 12:09 | Infectious Disease Progress Nt ---
Progress Note Date of Service Sep 14, 2016. Subjective Pt evaluation today including: conversation w/ patient, physical exam, chart review, lab review, review of studies, review of inpatient medication list Patient is feeling much improved today. Complaining of some very mild left sided abdominal pain but no further right sided pain. He denies fever, sweats, chills, N/V/D, headache, SOB, or cough. He has not had any further myalgias. WBC count today was 3.47. Ferritin level was 748, and AST/ALT were slightly increased today at 458 and 771 respectively. CRP has trended down to 3.77. Blood cultures are showing no growth. He continues on IV Ceftriaxone and PO Doxycycline. All Other Systems: Reviewed and Negative Medications Current Inpatient Medications Medications (Trade) Dose Ordered Sig/Lise Route Start Time Stop Time Status Last Admin Dose Admin Ioversol (Optiray 320) 115 ml UD PRN IV 09/12/16 22:15 09/16/16 22:14 Heparin Sodium (Porcine) (Heparin Sq 5000 Unit/0.5ml) 5,000 unit Q8H SQ 09/13/16 06:00 10/13/16 05:59 Acetaminophen (Tylenol Tab) 650 mg Q4H PRN PO 09/13/16 01:00 10/13/16 00:59 09/13/16 16:01 650 MG Al Hydrox/Mg Hydrox/Simethicone (Maalox Max Susp) 15 ml Q4H PRN PO 09/13/16 01:00 10/13/16 00:59 Magnesium Hydroxide (Milk Of Magnesia Susp) 30 ml Q6H PRN PO 09/13/16 01:00 10/13/16 00:59 Polyethylene (Miralax Powder Packet) 17 gm DAILY PRN PO 09/13/16 01:00 10/13/16 00:59 Zolpidem Tartrate (Ambien Tab) 5 mg HSZ PRN PO 09/13/16 01:00 10/13/16 00:59 09/13/16 23:42 5 MG Ondansetron HCl (Zofran Inj) 4 mg Q6H PRN IV 09/13/16 01:00 10/13/16 00:59 Doxycycline Hyclate (Vibramycin Cap) 100 mg BID PO 09/13/16 12:00 09/23/16 11:59 09/14/16 08:21 100 MG Ceftriaxone Sodium 2000 mg/ Dextrose 70 ml @ 100 mls/hr Q24H IV 09/13/16 21:00 09/15/16 20:59 09/13/16 21:25 100 MLS/HR Objective Vital Signs Date Time Temp Pulse Resp B/P (MAP) Pulse Ox O2 Delivery O2 Flow Rate FiO2 09/14/16 08:00 Room Air 09/14/16 07:41 36.6 58 16 95/60 (72) 98 Room Air 09/14/16 00:02 36.7 62 18 111/69 (83) 98 Room Air 09/14/16 00:00 Room Air 09/13/16 16:00 99 Room Air 09/13/16 15:55 37.3 67 16 111/68 (82) 99 Room Air Physical Exam General Appearance: WD/WN, no apparent distress Eyes: normal inspection, sclerae normal ENT: hearing grossly normal Neck: supple, trachea midline Respiratory/Chest: no respiratory distress, no accessory muscle use Cardiovascular: + pertinent finding (regular rate) Extremities: normal range of motion Skin: normal color, warm/dry, no rash Laboratory Results Item Value Date Time Blood Culture - Preliminary Resulted 09/12/162024 Blood NO GROWTH TO DATE. Blood Culture - Preliminary Resulted 09/12/162017 Blood NO GROWTH TO DATE. Last 24 Hours Test 09/14/16 07:08 White Blood Count 3.47 K/uL Red Blood Count 4.65 M/uL Hemoglobin 13.9 g/dL Hematocrit 41.6 % Mean Corpuscular Volume 89.5 fL Mean Corpuscular Hemoglobin 29.9 pg Mean Corpuscular Hemoglobin Concent 33.4 g/dl Platelet Count 220 K/uL Mean Platelet Volume 9.6 fL RDW Standard Deviation 42.4 fL RDW Coefficient of Variation 13.0 % Neutrophils % (Manual) 37.4 % Lymphocytes % (Manual) 27.8 % Variant Lymphocytes % (manual) 12.2 % Monocytes % (Manual) 14.8 % Eosinophils % (Manual) 6.1 % Basophils % (Manual) 1.7 % Neutrophils # (Manual) 1.30 K/uL Total Absolute Neutrophils 1.30 K/uL Lymphocytes # (Manual) 0.96 K/uL Absolute Variant Lymphocytes 0.42 K/uL Total Absolute Lymphocytes 1.39 K/uL Monocytes # (Manual) 0.51 K/uL Eosinophils # (Manual) 0.21 K/uL Basophils # (Manual) 0.06 K/uL Red Blood Cell Morphology Unremarkable Erythrocyte Sedimentation Rate 7 mm/hr Sodium Level 142 mmol/L Potassium Level 4.0 mmol/L Chloride Level 108 mmol/L Carbon Dioxide Level 27 mmol/L Anion Gap 7.0 mmol/L Blood Urea Nitrogen 11 mg/dl Creatinine 1.00 mg/dl Est Creatinine Clear Calc Drug Dose 105.6 ml/min Estimated GFR () 120.7 Estimated GFR (Non- 104.1 BUN/Creatinine Ratio 11.0 Random Glucose 92 mg/dl Calcium Level 8.5 mg/dl Magnesium Level 2.3 mg/dl Iron Level 108 mcg/dl Total Iron Binding Capacity 331 mcg/dl Transferrin 249 mg/dl Transferrin % Saturation 31 % Ferritin 748.6 ng/ml Total Bilirubin 0.5 mg/dl Direct Bilirubin 0.2 mg/dl Aspartate Amino Transf (AST/SGOT) 458 U/L Alanine Aminotransferase (ALT/SGPT) 771 U/L Alkaline Phosphatase 97 U/L Total Creatine Kinase 227 U/L C-Reactive Protein 3.77 mg/dl Total Protein 6.8 gm/dl Albumin 3.4 gm/dl Assessment and Plan Patient with mild pancytopenia, fever, elevated LFTs, recent tick exposure, 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 The patient is currently on IV Ceftriaxone and PO Doxycycline and is overall feeling better. Feel that likely this patient can go home with PO Doxycycline to complete 14 days and follow up with ID next week as an outpatient regarding Hep C as well. Thank you Case reviewed and agree with above assessment.
[2016-09-14 13:03] VITALS: BP 95/60; PULSE 58; TEMP 36.6; O2SAT 98
[2016-09-14] MEDS ORDERED: DXY100 PO (13:40)
--- NOTE | 2016-09-14 13:55 | Discharge Instructions ---
Discharge Instructions Date of Service Sep 14, 2016. Admission Reason for Admission: Fever, Elevated liver enzymes Discharge Discharge Diagnosis / Problem: Fever, elevated liver enzymes Discharge Goals Goal(s): Improve disease control, Diagnostic testing, Therapeutic intervention Activity Recommendations Activity Limitations: resume your previous activity Lifting Limitations: none Exercise/Sports Limitations: none Shower/Bathe: no limitations Driving or Machine Use: no limitations . Instructions / Follow-Up Instructions / Follow-Up You were admitted with fever and elevated liver enzymes as well as a slightly low white blood cell count. Your Hepatitis C test came back preliminarily positive but will need to be confirmed on further lab testing. You may have a tick-borne illness but some of the testing for that is still pending at the time of discharge. You will be treated with doxycycline for a total of 2 weeks. Because of your history of IV drug use, you are at high risk for bacterial infections of the heart valves. So far, your blood cultures are nor growing out any bacteria, but they are still pending the final result at the time of discharge. Please follow up with Infectious Disease as well as your new family doctor within the next week as scheduled for you. If your tests come back positive before then, you should be contacted by a doctor from the hospital. You should have your liver function tests repeated with blood work in 1-2 weeks. You should seek drug rehabilitation counseling as soon as possible. Current Hospital Diet Patient's current hospital diet: Regular Diet Discharge Diet Recommended Diet: Regular Diet Procedures Procedures Performed: Head CT CT abdomen/pelvis Chest xray Pending Studies Studies pending at discharge: yes List of pending studies: Hepatitis C RNQ quant Final Blood cultures Anaplasmosis and Erlichiosis titers Laboratory Results Last 24 Hours Test 09/14/16 07:08 White Blood Count 3.47 K/uL Red Blood Count 4.65 M/uL Hemoglobin 13.9 g/dL Hematocrit 41.6 % Mean Corpuscular Volume 89.5 fL Mean Corpuscular Hemoglobin 29.9 pg Mean Corpuscular Hemoglobin Concent 33.4 g/dl Platelet Count 220 K/uL Mean Platelet Volume 9.6 fL RDW Standard Deviation 42.4 fL RDW Coefficient of Variation 13.0 % Neutrophils % (Manual) 37.4 % Lymphocytes % (Manual) 27.8 % Variant Lymphocytes % (manual) 12.2 % Monocytes % (Manual) 14.8 % Eosinophils % (Manual) 6.1 % Basophils % (Manual) 1.7 % Neutrophils # (Manual) 1.30 K/uL Total Absolute Neutrophils 1.30 K/uL Lymphocytes # (Manual) 0.96 K/uL Absolute Variant Lymphocytes 0.42 K/uL Total Absolute Lymphocytes 1.39 K/uL Monocytes # (Manual) 0.51 K/uL Eosinophils # (Manual) 0.21 K/uL Basophils # (Manual) 0.06 K/uL Red Blood Cell Morphology Unremarkable Erythrocyte Sedimentation Rate 7 mm/hr Sodium Level 142 mmol/L Potassium Level 4.0 mmol/L Chloride Level 108 mmol/L Carbon Dioxide Level 27 mmol/L Anion Gap 7.0 mmol/L Blood Urea Nitrogen 11 mg/dl Creatinine 1.00 mg/dl Est Creatinine Clear Calc Drug Dose 105.6 ml/min Estimated GFR () 120.7 Estimated GFR (Non- 104.1 BUN/Creatinine Ratio 11.0 Random Glucose 92 mg/dl Calcium Level 8.5 mg/dl Magnesium Level 2.3 mg/dl Iron Level 108 mcg/dl Total Iron Binding Capacity 331 mcg/dl Transferrin 249 mg/dl Transferrin % Saturation 31 % Ferritin 748.6 ng/ml Total Bilirubin 0.5 mg/dl Direct Bilirubin 0.2 mg/dl Aspartate Amino Transf (AST/SGOT) 458 U/L Alanine Aminotransferase (ALT/SGPT) 771 U/L Alkaline Phosphatase 97 U/L Total Creatine Kinase 227 U/L C-Reactive Protein 3.77 mg/dl Total Protein 6.8 gm/dl Albumin 3.4 gm/dl Medical Emergencies . Who to Call and When: Medical Emergencies: If at any time you feel your situation is an emergency, please call 911 immediately. . Non-Emergent Contact Non-Emergency issues call your: Primary Care Provider, Specialist (Infectious Disease) Call Non-Emergent contact if: temperature is above 101, your pain is not controlled, your pain is worsening, your pain is unusual for you, your pain is concerning you, you have any medication questions . . "Provider Documentation" section prepared by Jasmine Cam. . VTE Core Measure Inpt VTE Proph given/why not?: Unfractionated heparin SQ
--- NOTE | 2016-09-14 22:02 | Discharge Summary ---
Discharge Summary Date of Service Sep 14, 2016. Discharge Summary Admission Date: Sep 13, 2016 at 00:50 Discharge Date: Sep 14, 2016 Discharge Disposition: Home Principal Diagnosis: Fever, Elevated LFTs Problems/Secondary Diagnoses: IVDU Preliminary positive Hepatitis C titer Bipolar disorder Opioid abuse disorder Marijuana abuse Chewing tobacco use Procedures: CT abdomen/pelvis Chest xray Head CT Consultations: Infectious Disease Medication Reconciliation New Medications: Doxycycline Hyclate (Doxycycline Hyclate) 100 Mg Cap 100 MG PO BID for 13 Days, #26 CAP Discharge Exam Afebrile, doing very well. No further headache. Still with some LUQ abd pain but improved. Review of Systems: Constitutional: No fever Eyes: No problem reported ENT: No problem reported Respiratory: No problem reported Cardiovascular: No problem reported Abdomen: + pain, No nausea, No vomiting, No diarrhea Musculoskeletal: No problem reported Genitourinary - Male: No problem reported Neurologic: No problem reported Psychiatric: No problem reported Endocrine: No problem reported Hematologic / Lymphatic: No problem reported Integumentary: No problem reported Physical Exam: General Appearance: WD/WN, no apparent distress Eyes: normal inspection, sclerae normal ENT: hearing grossly normal Neck: no adenopathy, trachea midline Respiratory/Chest: lungs clear, normal breath sounds, no respiratory distress, no accessory muscle use Cardiovascular: regular rate, rhythm, no edema, no gallop, no murmur Abdomen / GI: normal bowel sounds, non tender, soft, no organomegaly, no pulsatile mass Extremities: normal inspection, no calf tenderness, no pedal edema, normal range of motion Neurologic/Psychiatric: alert, normal mood/affect, oriented x 3 Skin: normal color, warm/dry, no rash Lymphatic: no adenopathy Hospital Course This pt is a 26 y/o male with a history of IVDU - last use ~ 1 month prior. Presents with fevers and night sweats for 5 days. Describes drenching sweats over the last 2 nights. The pt states that on he had found a deer tick on himself after walking around a wooded area. He denies CP, SOB, a productive cough, diarrhea or dysuria. He states that his urine has been orange in color and reports some left upper abdominal discomfort with inspiration. He had a circular rash 5 days prior on the left lower abdomen which has since resolved. His LFTs were elevated on initial labs and a HEP C screen is preliminarily +. His CK was mildly elevated and he has mild neutropenia and anemia. A fever of 39 was confirmed on arrival to the ER. There is no clear source of infection at present although he is at risk for endocarditis and tick-borne disease. He was started on Rocephin and Vancomycin. Infectious disease was consulted and thought it was tick-borne illness; they changed his antibiotics to doxycycline po. He was given one more dose of Rocephin for a total of 2 days-worth. He remained afebrile since admission. He feels much better. Headaches are gone. He denies any new joint pains except for his chronic right knee and ankle injuries. Discussed prelim +Hep C and need for confirmatory testing which was still pending at the time of discharge. LFTs remain elevated but are trending downward after admission;he remains mildly leukopenic. His constellation of symptoms could be from acute Hep C infection vs Lyme disease or Anaplasmosis vs SBE given IVDA. His Blood cultures remained negative at the [address], but should be followed after discharge by ID and PCP. His left upper abdominal pain is thought to possibly be from subclinical spleen enlargement? although was considered to be of normal size as per Radiology report of CT abd/pelvis. He was counseled about the need for abstinence from all drugs and chewing tobacco. He plans on reentering drug counseling as an outpatient. He was discharged to home in good condition with po doxycycline for 14 days total. He will have follow up appointments with ID and get established with a PCP. Total Time Spent: Greater than 30 minutes This includes examination of the patient, discharge planning, medication reconciliation, and communication with other providers. Discharge Instructions Please refer to the electronic Patient Visit Report (Discharge Instructions) for additional information. Follow-Up PCP and ID within 1 week Repeat LFTs in 1-2 weeks Additional Copies To Teresa Patel .DOLORES; Marcos Hernadez D.O.
[2016-09-17 08:23] LABS: HEPATITIS C RNA TMA QUAL Detected
--- NOTE | 2016-09-17 15:17 | Pharmacy Progress Note ---
ED Pharmacist Progress Note Date of Service: Sep 17, 2016. Preliminary blood cx from 09/12/16 growing gram positive bacilli. I contacted lab to determine if this was the aerobic or anaerobic cx. Per micro (Ajay) he was not certain whether this was the aerobic or anaerobic cx that was growing GPB, however he believed the organism is most likely propionibacterium based upon appearance. This likely reflects a skin contaminant. The other culture remains negative. The patient had been admitted to [facility] with febrile illness, abdominal pain, rash , as well as CUEVAS and chills - all in the setting of recent tick bite and + Hep C screening. ID was consulted while hospitalized. He was ultimately discharged with Rx for Doxycycline for additional 13 days (to complete a 14 day tx course). Given the BLCX required 5 days to show growth and GPB are usually propionibacterium, no further action required.
[2016-09-18 18:31] LABS: EHRLICHIA CHAFF IGG AB <1:64 (<1:64); EHRLICHIA CHAFF IGM AB <1:20 (<1:20)
[2016-09-20 19:35] LABS: ANAPLASMA PHAGOCYTOPHIL IGG <1:64 (<1:64); ANAPLASMA PHAGOCYTOPHIL IGM <1:20 (<1:20)
== END 2016-09-14 14:33 | disposition home or self-care (01) | DRG 868 ==
LOC: C.EDB 19:55 → C.MS4W 09-13 00:50 → ENRESERV 09-13 01:09
PROVIDERS: ADMIT Internal Medicine; ATTEND Family Medicine
DX: A77.49 Other ehrlichiosis (principal); D61.818 Other pancytopenia; W57.XXXA Bitten or stung by nonvenomous insect and other nonvenomous arthropods, initial encounter; B19.20 Unspecified viral hepatitis C without hepatic coma; R50.9 Fever, unspecified; F11.10 Opioid abuse, uncomplicated; F12.10 Cannabis abuse, uncomplicated; Z72.0 Tobacco use

== ENCOUNTER → 2016-10-13 | Outpatient (CLI) | payer OTHER ==
[~2016-10-13] MED LIST: DXY100 PO
[2016-10-13 13:10] LABS: URINE APPEARANCE CLOUDY (CLEAR); URINE BILIRUBIN NEG (NEG); URINE COLOR DK YELLOW; URINE NITRITE NEG (NEG); URINE PH 7.5 (4.5-7.5); URINE SPECIFIC GRAVITY 1.027 (1.000-1.030); UROBILINOGEN NEG (NEG); ZZUR CULT IF INDIC CLEAN CATCH NO
[2016-10-13 13:12] LABS: ALT/SGPT 246 U/L (12-78); AST/SGOT 37 U/L (15-37); BLOOD UREA NITROGEN 16 mg/dl (7-18); CALCIUM 9.3 mg/dl (8.5-10.1); CARBON DIOXIDE 32 mmol/L (21-32); CHLORIDE 105 mmol/L (98-107); CHOLESTEROL 151 mg/dl (0-200); CREATININE 0.92 mg/dl (0.60-1.40); GLUCOSE 82 mg/dl (70-99); POTASSIUM 4.3 mmol/L (3.5-5.1); SODIUM 138 mmol/L (136-145); TRIGLYCERIDES 81 mg/dl (0-150); VERY LOW DENSITY LIPOPROT CALC 16 mg/dl
[2016-10-13 13:13] LABS: ALB/GLOB RATIO 1.1 (0.9-2); ALKALINE PHOSPHATASE 85 U/L (45-117); CHOLESTEROL/HDL RATIO 3.1; HDL CHOLESTEROL 49 mg/dl; LDL CHOLESTEROL CALCULATED 86 mg/dl
[2016-10-13 13:35] LABS: MANUAL MICROSCOPIC REQUIRED? NO; REVIEW REQ? NO
== END | disposition home or self-care (01) ==
LOC: C.LABPVFM 09:06
PROVIDERS: ATTEND Neuromusculoskeletal Medicine & OMM
DX: Z00.00 Encounter for general adult medical examination without abnormal findings (principal); B18.2 Chronic viral hepatitis C; R94.5 Abnormal results of liver function studies; R39.89 Other symptoms and signs involving the genitourinary system

== ENCOUNTER 2017-07-31 22:27 | Emergency (ER) | payer BC, OTHER ==
[~2017-07-31] VITALS: Ht 170.2 cm; Wt 72.8 kg
[2017-07-31 22:30] VITALS: TEMP 36.6; Ht 170.2 cm; Wt 72.8 kg
--- NOTE | 2017-07-31 22:59 | DIAGNOSTIC IMAGING REPORT ---
R FOOT MIN 3 VIEWS ROUTINE CLINICAL HISTORY: 27 years-old Male presenting with R foot injury. TECHNIQUE: Frontal, oblique, and lateral views the right foot were obtained. COMPARISON: 11/08/2005. FINDINGS: Os peroneum noted. No acute fracture or malalignment. No advanced degenerative change. No radiographic soft tissue abnormality. IMPRESSION: No acute osseous injury. Electronically signed by: López Rogers M.D. 07/31/2017 10:57 PM Dictated Date/Time: 07/31/2017 10:56 PM
[2017-07-31] MEDS ORDERED: AMPH15CA7 PO (23:02)
[2017-07-31] MEDS ORDERED: TRAM-10 PO (23:28)
[2017-07-31] MEDS ORDERED: TRAMADOL HCL 50 MG HOME PACK PO ONE (23:30)
--- NOTE | 2017-07-31 23:35 | EMERGENCY ROOM VISIT NOTE ---
History First contact with patient: 22:34 Chief Complaint: FOOT PAIN Stated Complaint: POSSIBLE BROKEN R FOOT/ANKLE History of Present Illness The patient is a 27 year old male who presents to the Emergency Room with complaints of an injury to his right foot. The patient reports that he was throwing dog toys that his dog when he shifted his weight the wrong way and the dog took him out at the legs. The patient reports twisting his foot and ankle, and now complains of pain over the outer aspect of the foot with associated swelling and bruising. The patient rates his discomfort a 7 out of 10 with weightbearing. The patient reports that he had surgery on the foot in October [address] Gil. He had hardware removal in July 2011. The patient currently denies any pain extending above the ankle, and denies any paresthesias or numbness of the right foot or toes. Review of Systems 10 system review was performed and was negative except for pertinent positives and negatives as indicated in history of present illness Past Medical/Surgical History Medical Problems: (1) FUO (fever of unknown origin) (2) LFT elevation (3) No Known Active Medical Problems Medical Problems: (1) Bipolar Disorder, Unspecified (2) Cannabis Abuse, Uncomplicated (3) Chronic Viral Hepatitis C (4) FUO (fever of unknown origin) (5) LFT elevation (6) Migraine Unspecified W/O Intract Mgrn W/O Status Migrainosus (7) Opioid Abuse, Uncomplicated (8) Tobacco Use Surgical Problems: (1) History of foot surgery Family History Unremarkable Social History Smoking Status: Never Smoker Alcohol Use: none Marital Status: Housing Status: lives with family Occupation Status: employed Current/Historical Medications Scheduled Amphetamine-Dextroamphetamine 15MG (Adderall Xr 15MG), 15 MG PO BID Scheduled PRN Tramadol (Ultram), 1-2 TAB PO Q4H PRN for Pain Physical Exam Vital Signs Date Time Temp Pulse Resp B/P (MAP) Pulse Ox O2 Delivery O2 Flow Rate FiO2 07/31/17 22:30 36.6 82 18 116/71 99 Room Air Physical Exam CONSTITUTIONAL: Healthy and well nourished. Alert and oriented X 3 with positive affect. HEENT: Normocephalic, atraumatic. Pupils equal, round and reactive. NECK: Full active range of motion without discomfort. MUSCULOSKELETAL: Examination of the right foot shows lateral edema and ecchymosis. A surgical incision is also noted over the fifth metacarpal region. The patient has no tenderness to palpation over the medial ankle region. He has mild discomfort laterally. Negative anterior draw. No focal tenderness to palpation of the dorsal midfoot, calcaneus or Achilles tendon. Pedal pulses are intact. INTEGUMENTARY: No rash or other significant dermatologic conditions noted. NEUROLOGIC: Right foot and toes are sensory intact. Medical Decision & Procedures ER Provider Diagnostic Interpretation: My interpretation of right foot x-rays does not show any obvious fractures or dislocations. Radiologist report is as follows: R FOOT MIN 3 VIEWS ROUTINE CLINICAL HISTORY: 27 years-old Male presenting with R foot injury. TECHNIQUE: Frontal, oblique, and lateral views the right foot were obtained. COMPARISON: 11/08/2005. FINDINGS: Os peroneum noted. No acute fracture or malalignment. No advanced degenerative change. No radiographic soft tissue abnormality. IMPRESSION: No acute osseous injury. ED Course Patient history and physical exam were performed. Nurse's notes were reviewed. The patient refused any analgesics on initial exam. An ice pack was applied to the foot. X-rays of the right foot were normal. The nurse then advised that the patient was requesting something for pain. Review of prior medical records shows that the patient has a prior history of opioid abuse. Review of the [place] Prescription Drug Monitoring Program has not shown any previous opioid prescriptions or other red flags. The patient was administered Ultram 50 mg orally, and dispensed a home pack and prescription for Ultram as needed for breakthrough pain. He was encouraged alternate ibuprofen and Tylenol for baseline pain relief. The patient was instructed that his best pain relief is using crutches to minimize weight on the foot. Ice and elevation for swelling. The patient was encouraged to follow-up with Dr. Earl , [facility] foot surgeon, if his symptoms are not improving within the next week. The patient voiced understanding of all discharge instructions, was happy with plan of care, and rated his pain a 4 out of 10 at the conclusion of my exam. Medical Decision [place] Drug Monitoring Program Search Results: patient reviewed within database, no issues identified Medication Reconcilliation Current Medication List: was personally reviewed by me Blood Pressure Screening Patient's blood pressure: Normal blood pressure Impression Primary Impression: Right foot strain Departure Information Prescriptions Tramadol (Ultram) 50 Mg Tab 1-2 TAB PO Q4H Y for Pain, #15 TAB For Initial Treatment Prov: Jeremy Huitron PA 07/31/17 Referrals Marcos Hernadez D.O. (PCP) Patient Instructions My [facility] Problem Qualifiers Primary Impression: Right foot strain Encounter type: initial encounter Qualified Codes: S96.911A - Strain of unspecified muscle and tendon at ankle and foot level, right foot, initial encounter
[2017-07-31 23:37] VITALS: BP 118/58; PULSE 64; O2SAT 97
== END 2017-07-31 23:39 | disposition home or self-care (01) ==
LOC: C.EDB 22:28 → C.EDC 23:39
DX: S96.912A Strain of unspecified muscle and tendon at ankle and foot level, left foot, initial encounter (principal); W54.1XXA Struck by dog, initial encounter; F31.9 Bipolar disorder, unspecified; Z98.890 Other specified postprocedural states; Z79.899 Other long term (current) drug therapy

== ENCOUNTER 2017-11-13 10:30 | Emergency (ER) | payer BC ==
[~2017-11-13] VITALS: Ht 170.2 cm; Wt 72.3 kg
[~2017-11-13 10:30] MED LIST changes: +AMPH15CA7 PO; -DXY100 PO; +TRAM-10 PO
[2017-11-13 10:33] VITALS: TEMP 37.4; Ht 170.2 cm; Wt 72.3 kg
[2017-11-13] MEDS ORDERED: ACETAMINOPHEN 500 MG TAB PO STA (11:02)
[2017-11-13] MEDS ORDERED: SODIUM CHLORIDE 0.9% 1000ML 1,000 ML IV ONE (11:02)
[2017-11-13] MEDS ORDERED: KETOROLAC TROMETHAMINE 30 MG/ML VIAL IV STA (11:02)
[2017-11-13] MEDS ORDERED: ONDANSETRON INJ 2 MG/ML 2 ML VIAL IV STA (11:02)
[2017-11-13 11:29] VITALS: O2SAT 98
--- NOTE | 2017-11-13 11:34 | DIAGNOSTIC IMAGING REPORT ---
CHEST ONE VIEW PORTABLE CLINICAL HISTORY: Sepsis COMPARISON STUDY: 09/12/2016 FINDINGS: The cardiac and mediastinal contours are normal. There is no evidence of focal pulmonary consolidation. There is no evidence of failure. No pleural effusions are visualized.[ IMPRESSION: No active disease in the chest. Electronically signed by: Jerome Lopez M.D. 11/13/2017 11:33 AM Dictated Date/Time: 11/13/2017 11:32 AM
[2017-11-13 11:42] LABS: BASO % 0.7 %; BASO ABS # 0.03 K/uL (0-0.2); HEMATOCRIT 42.6 % (42-52); HEMOGLOBIN 14.4 g/dL (14.0-18.0); LYMPH % 10.2 %; LYMPH ABS # 0.41 K/uL (1.2-3.4); MEAN CELL VOLUME 90.1 fL (80-100); MEAN CORPUSCULAR HEMOGLOBIN 30.4 pg (25-34); MEAN CORPUSCULAR HGB CONC 33.8 g/dl (32-36); MEAN PLATELET VOLUME 9.2 fL (7.4-10.4); NEUT % 84.1 %; NEUT ABS # 3.38 K/uL (1.4-6.5); PLATELET COUNT 200 K/uL (130-400); RED CELL DISTRIBUTION WIDTH CV 12.8 % (11.5-14.5); RED CELL DISTRIBUTION WIDTH SD 42.1 fL (36.4-46.3); WHITE BLOOD COUNT 4.02 K/uL (4.8-10.8)
[2017-11-13 11:45] LABS: PTT PATIENT 29.7 SECONDS (21.0-31.0)
[2017-11-13 11:54] LABS: ALBUMIN 3.9 gm/dl (3.4-5.0); CALCIUM 8.7 mg/dl (8.5-10.1); CREATININE 1.04 mg/dl (0.60-1.40); POTASSIUM 4.2 mmol/L (3.5-5.1); TOTAL PROTEIN 7.3 gm/dl (6.4-8.2)
[2017-11-13 13:58] VITALS: BP 112/58; PULSE 66; O2SAT 96
--- NOTE | 2017-11-13 16:52 | EMERGENCY ROOM VISIT NOTE ---
History Report prepared by Marie: Stew Perez Under the Supervision of: Dr. Km Hernandez M.D. First contact with patient: 10:59 Chief Complaint: ABDOMINAL PAIN Stated Complaint: FEVER,ABDOMINAL,MUSCLE,JOINT PAIN,SEVERE HEADACHE Nursing Triage Summary: Pt states that last year he was diagnosed with hep C. Pt states that over the last couple of days he has been having similar symtoms which he was admitted with last year. Pt states that he started to have a headache and left upper quadrant abdominal pain a couple of days ago. Pt states that he pain is becoming worse. The pain feels like pins and needles and radiates thru to his back. Pt states that he is diaphoretic, has a decreased appetite and that his urine is dark. Abdomen soft, nontender, nondistened + BS x4 quad Vitals are stable History of Present Illness The patient is a 27 year old male who presents to the Emergency Room with complaints of worsening abdominal pain around the diaphragm, a "debilitating" headache, and muscle and joint pain beginning yesterday morning. The patient states that his symptoms started with a headache. He notes that he is also experiencing low grade fevers, chills, night sweats, and orange-colored urine. He states that he does not have difficulty urinating. The patient reports that he was diagnosed with Hepatitis C in August 2016 after reporting to the hospital with similar symptoms. He notes that his symptoms at that time were more severe than his current symptoms. The patient denies any sick contacts, other medical problems, or tick bites. The patient denies sore throat or cough. He reports that he took Tylenol last night. He states that he does not currently have a PCP. He notes that he smokes marijuana, but is not currently using IV drugs. Source of History: patient Onset: yesterday morning Position: head, abdomen, other (muscles and joints) Symptom Intensity: headache is "debilitating" Quality: other (headache, muscle and joint pain, abdominal pain) Timing: worsening Associated Symptoms: + fevers, + chills, + diaphoresis, + urinary symptoms ( orange urine), No sorethroat, No cough Review of Systems See HPI for pertinent positives & negatives. A total of 10 systems reviewed and were otherwise negative. Past Medical & Surgical Medical Problems: (1) Bipolar Disorder, Unspecified (2) Cannabis Abuse, Uncomplicated (3) Chronic Viral Hepatitis C (4) FUO (fever of unknown origin) (5) LFT elevation (6) Migraine Unspecified W/O Intract Mgrn W/O Status Migrainosus (7) Opioid Abuse, Uncomplicated (8) Tobacco Use Surgical Problems: (1) History of foot surgery Family History Supraventricular tachycardia Social History Smoking Status: Former Smoker Alcohol Use: none Marital Status: Housing Status: lives with family Occupation Status: employed Current/Historical Medications Scheduled Amphetamine-Dextroamphetamine 15MG (Adderall Xr 15MG), 15 MG PO BID Allergies Coded Allergies: Sulfamethoxazole w/Trimethoprim (Verified Allergy, Unknown, hives, 11/13/17 ) Physical Exam Vital Signs Date Time Temp Pulse Resp B/P (MAP) Pulse Ox O2 Delivery O2 Flow Rate FiO2 11/13/17 13:58 66 112/58 96 11/13/17 13:15 63 16 111/50 97 Room Air 11/13/17 12:30 81 16 112/50 97 Room Air 11/13/17 11:29 98 Room Air 11/13/17 10:33 37.4 104 18 110/70 98 Room Air Physical Exam GENERAL: Patient is in no acute distress. HEENT: No acute trauma, normocephalic atraumatic, mucous membranes moist, no nasal congestion, no scleral icterus. No throat erythema or exudate. NECK: No stridor, no adenopathy, no meningismus, trachea is midline. LUNGS: Clear to auscultation bilaterally, no wheeze, no rhonchi, breath sounds equal. HEART: Without murmurs gallops or rubs, regular rate and rhythm. ABDOMEN: Soft, nontender, bowel sounds positive, no hernias, no peritonitis. EXTREMITIES: No cyanosis or edema, full range of motion of all the joints without pain or difficulty, no signs for acute trauma. NEUROLOGIC: Oriented x 3, no acute motor or sensory deficits, no focal weakness. SKIN: No rash, no jaundice, no diaphoresis. Medical Decision & Procedures ER Provider Diagnostic Interpretation: Radiology results as stated below per my review and radiologist interpretation: CHEST ONE VIEW PORTABLE CLINICAL HISTORY: Sepsis COMPARISON STUDY: 09/12/2016 FINDINGS: The cardiac and mediastinal contours are normal. There is no evidence of focal pulmonary consolidation. There is no evidence of failure. No pleural effusions are visualized.[ IMPRESSION: No active disease in the chest. Electronically signed by: Jerome Lopez M.D. 11/13/2017 11:33 AM Dictated Date/Time: 11/13/2017 11:32 AM Laboratory Results 11/13/17 11:35 Red Blood Count 4.73, Mean Corpuscular Volume 90.1, Mean Corpuscular Hemoglobin 30.4, Mean Corpuscular Hemoglobin Concent 33.8, Mean Platelet Volume 9.2, Neutrophils (%) (Auto) 84.1, Lymphocytes (%) (Auto) 10.2, Monocytes (%) (Auto) 5.0, Eosinophils (%) (Auto) 0.0, Basophils (%) (Auto) 0.7, Neutrophils # (Auto) 3.38, Lymphocytes # (Auto) 0.41, Monocytes # (Auto) 0.20, Eosinophils # (Auto) 0.00, Basophils # (Auto) 0.03 11/13/17 11:15 Test 11/13/17 11:15 11/13/17 11:27 11/13/17 11:30 11/13/17 11:35 Prothrombin Time 10.1 SECONDS (9.0-12.0) Prothromb Time International Ratio 1.0 (0.9-1.1) Activated Partial Thromboplast Time 29.7 SECONDS (21.0-31.0) Partial Thromboplastin Ratio 1.1 Anion Gap 5.0 mmol/L (3-11) Est Creatinine Clear Calc Drug Dose 100.7 ml/min Estimated GFR () 114.3 Estimated GFR (Non- 98.6 BUN/Creatinine Ratio 11.8 (10-20) Calcium Level 8.7 mg/dl (8.5-10.1) Magnesium Level 1.9 mg/dl (1.8-2.4) Total Bilirubin 0.4 mg/dl (0.2-1) Aspartate Amino Transf (AST/SGOT) 25 U/L (15-37) Alanine Aminotransferase (ALT/SGPT) 24 U/L (12-78) Alkaline Phosphatase 48 U/L (45-117) Total Creatine Kinase 391 U/L (39-308) Total Protein 7.3 gm/dl (6.4-8.2) Albumin 3.9 gm/dl (3.4-5.0) Globulin 3.4 gm/dl (2.5-4.0) Albumin/Globulin Ratio 1.1 (0.9-2) Lyme Disease IgG Antibody NEG (NEG) Lyme Disease IgM Antibody NEG (NEG) Bedside Lactic Acid Venous 0.78 mmol/L (0.90-1.70) Urine Color YELLOW Urine Appearance CLEAR (CLEAR) Urine pH 8.5 (4.5-7.5) Urine Specific [place] 1.024 (1.000-1.030) Urine Protein NEG (NEG) Urine Glucose (UA) NEG (NEG) Urine Ketones NEG (NEG) Urine Occult Blood NEG (NEG) Urine Nitrite NEG (NEG) Urine Bilirubin NEG (NEG) Urine Urobilinogen NEG (NEG) Urine Leukocyte Esterase NEG (NEG) Urine WBC (Auto) 0 /hpf (0-5) Urine RBC (Auto) 0-4 /hpf (0-4) Urine Hyaline Casts (Auto) 0 /lpf (0-5) Urine Epithelial Cells (Auto) 0-5 /lpf (0-5) Urine Bacteria (Auto) NEG (NEG) White Blood Count 4.02 K/uL (4.8-10.8) Red Blood Count 4.73 M/uL (4.7-6.1) Hemoglobin 14.4 g/dL (14.0-18.0) Hematocrit 42.6 % (42-52) Mean Corpuscular Volume 90.1 fL (80-100) Mean Corpuscular Hemoglobin 30.4 pg (25-34) Mean Corpuscular Hemoglobin Concent 33.8 g/dl (32-36) Platelet Count 200 K/uL (130-400) Mean Platelet Volume 9.2 fL (7.4-10.4) Neutrophils (%) (Auto) 84.1 % Lymphocytes (%) (Auto) 10.2 % Monocytes (%) (Auto) 5.0 % Eosinophils (%) (Auto) 0.0 % Basophils (%) (Auto) 0.7 % Neutrophils # (Auto) 3.38 K/uL (1.4-6.5) Lymphocytes # (Auto) 0.41 K/uL (1.2-3.4) Monocytes # (Auto) 0.20 K/uL (0.11-0.59) Eosinophils # (Auto) 0.00 K/uL (0-0.5) Basophils # (Auto) 0.03 K/uL (0-0.2) RDW Standard Deviation 42.1 fL (36.4-46.3) RDW Coefficient of Variation 12.8 % (11.5-14.5) Immature Granulocyte % (Auto) 0.0 % Immature Granulocyte # (Auto) 0.00 K/uL (0.00-0.02) Laboratory results reviewed by me. Medications Administered Medications (Trade) Dose Ordered Sig/Lise Route Start Time Stop Time Status Last Admin Dose Admin Sodium Chloride 1,000 ml @ 999 mls/hr Q1H1M ONCE IV 11/13/17 11:02 11/13/17 12:02 DC 11/13/17 11:26 999 MLS/HR Acetaminophen (Tylenol Tab) 1,000 mg NOW STAT PO 11/13/17 11:02 11/13/17 11:06 DC 11/13/17 11:26 1,000 MG Ketorolac Tromethamine (Toradol Inj) 15 mg NOW STAT IV 11/13/17 11:02 11/13/17 11:06 DC 11/13/17 11:27 15 MG Ondansetron HCl (Zofran Inj) 4 mg NOW STAT IV 11/13/17 11:02 11/13/17 11:06 DC 11/13/17 11:26 4 MG ED Course 1101: The patient was evaluated in room C4. A complete history and physical exam was performed. 1102: Ordered Zofran 4 mg IV, Toradol 15 mg IV, Tylenol 1000 mg PO, Sodium Chloride 1000 ml @ 999 mls/hr IV 1323: Reevaluated the patient. Discussed results and discharge instructions: He verbalized understanding and agreement. The patient is ready for discharge. Medical Decision Differential diagnosis: Sepsis or bacteremia, pneumonia, UTI, electrolyte imbalance, dehydration, lyme disease, viral illness There is no leukocytosis or concerning anemia. No significant electrolyte abnormality, kidney failure or hepatitis. Lactic acid level is not elevated making sepsis less likely. Blood cultures are pending. Chest film does not show pneumonia or CHF. Urinalysis does not show infection. On exam, the patient was not toxic, there was no evidence for peritonitis, no cellulitis. Lyme disease testing was negative. No rhabdomyolysis. The patient received IV saline, oral Tylenol, IV Toradol and IV Zofran, he feels markedly improved. The patient is feeling improved. His illness is very likely viral, we can call with any positive blood culture results. The patient will return if feeling worse or not improving, [id number] fever control, rest and hydration were encouraged. He was given a few days off of work. Medication Reconcilliation Current Medication List: was personally reviewed by me Blood Pressure Screening Patient's blood pressure: Normal blood pressure Blood pressure disposition: Did not require urgent referral Impression Primary Impression: Body aches Additional Impressions: Weakness Hepatitis C Scribe Attestation The scribe's documentation has been prepared under my direction and personally reviewed by me in its entirety. I confirm that the note above accurately reflects all work, treatment, procedures, and medical decision making performed by me. Departure Information Dispostion Home / Self-Care Referrals No Doctor, Assigned (PCP) Forms HOME CARE DOCUMENTATION FORM, IMPORTANT VISIT INFORMATION Patient Instructions My [facility] Additional Instructions use motrin and or tylenol for aches and fever rest fluids return if worsening as we discussed lab work and imaging today was all ok Problem Qualifiers
== END 2017-11-13 13:58 | disposition home or self-care (01) ==
LOC: C.EDB 10:32 → C.EDC 13:58
DX: R52 Pain, unspecified (principal); R53.1 Weakness; B19.20 Unspecified viral hepatitis C without hepatic coma; F12.90 Cannabis use, unspecified, uncomplicated; F31.9 Bipolar disorder, unspecified; F11.90 Opioid use, unspecified, uncomplicated; Z87.891 Personal history of nicotine dependence; Z88.2 Allergy status to sulfonamides

== ENCOUNTER 2025-01-09 15:39 | Observation (INO) ==
--- NOTE | 2025-01-09 15:59 | Emergency Department Note ---
ED Provider Note History of Present Illness Chief Complaint: Abdominal Pain Stated Complaint: VOMITING,ABDOMEN/BACK PAIN Time Seen by Provider: 01/09/25 15:48 34-year-old male who presents to the emergency department for evaluation of approximately 36 hours of severe upper abdominal pain radiating into the back. The patient reports a prior history of pancreatitis and 2020-04, and reports that this feels the same. He reports that the pancreatitis resolved itself in the past, and did not require any further extensive intervention. The patient then reports that he was incarcerated for 2 years, and does not recall any similar episodes. The patient denies any significant caffeine, alcohol or NSAID use. He denies any recent trauma to the abdomen. He reports that the pain does radiate into the center of the chest, feeling like "horrible reflux", although he denies history of GERD. He also reports nausea without vomiting. He denies sweatiness or shortness of breath. He currently rates his discomfort a 6 out of 10. Home Medications Medication Instructions Recorded Confirmed Type escitalopram oxalate 10 mg tablet 10 mg PO DAILY #30 tabs 12/29/24 01/09/25 Rx (Lexapro) lamotrigine 100 mg tablet 100 mg PO DAILY #30 tabs 12/29/24 01/09/25 Rx (Lamictal) quetiapine 100 mg tablet (Seroquel) 100 mg PO DAILY #30 tabs 12/29/24 01/09/25 Rx levothyroxine 137 mcg tablet 137 mcg PO DAILY #30 tabs 01/01/25 01/09/25 Rx buprenorphine 8 mg-naloxone 2 mg 0.5 film sublingual BID 01/09/25 01/09/25 History sublingual film Allergies Allergy/AdvReac Type Severity Reaction Status Date / Time sulfamethoxazole Allergy Intermediate hives Verified 12/29/24 09:19 trimethoprim Allergy Intermediate hives Verified 12/29/24 09:19 Bactrim Allergy Unknown hives Verified 11/13/17 12:18 Past Med/Surg History Problem List Depression Chest pain Viral gastritis Elevated creatine kinase level (Acute) Elevated troponin I level (Acute) Acute epigastric pain (Acute) Suicide attempt by hanging Imprisonment and other incarceration Depression with anxiety H/O arthroscopic knee surgery Thoracic compression fracture FUO (fever of unknown origin) LFT elevation Body aches (Acute) Weakness (Acute) Tobacco use Foreign body of left hand (Chronic) Right wrist pain (Chronic) Right shoulder pain (Chronic) Derangement of meniscus of left knee due to old injury (Chronic) Medical marijuana use (Chronic) Routine health maintenance (Chronic) Memory impairment of gradual onset (Chronic) Finger infection (Acute) Subungual hematoma of finger of left hand Puncture wound of finger of left hand Scapular dyskinesis Cervical radiculopathy Stroke H/O concussion Headache Insomnia (Chronic) H/O stroke without residual deficits Patient request for diagnostic testing Seizure Demyelinating disease Demyelinating disease Right inguinal pain Testicular pain, right Tinnitus of both ears Acquired deviated nasal septum Lump in the groin (Acute) Abdominal pain Change in bowel habits Snoring Witnessed apneic spells Fatigue Sleep disturbances Encounter for pre-operative examination Irritable bowel syndrome with diarrhea Tear of medial meniscus of left knee Bilateral varicoceles Knee pain, left Headache Seizure-like activity Dream enactment behavior Varicocele Encounter for vasectomy counseling Strain of tendon of left rotator cuff Foreign body of hand Encounter for pre-operative examination Seizure disorder (Acute) Migraine Abdominal pain resolved Tinnitus Hyperthyroidism (Chronic) no current medications, monitoring levels currently Marijuana user (Acute) medical card History of foot surgery x2 RIGHT FOOT - Hardware implanted 10/2010, Hardware removal - 10/2011 Medical History Pancreatitis resolved per pt REM sleep behavior disorder COVID-19 virus detected 05/02/20> [facility] > no hospitalization > no symptoms Abnormal MRI of head ? per pt--lesions on brain?? Osteoarthritis right foot History of stroke unknown when, unknown cause--found on an MRI--follows with Dr. Ndiaye--no deficits Seizure 11/15/20 > lasted approx 2 mins--grand mal--unknown cause, follows with Dr. Ndiaye Anxiety Cocaine use Bipolar disorder, unspecified Cannabis abuse, uncomplicated Chronic hepatitis Hepatitis C Opioid abuse, uncomplicated Hepatitis C resolved per pt Surgical History History of esophagogastroduodenoscopy (EGD) History of colonoscopy History of tonsillectomy and adenoidectomy Status post wisdom tooth extraction Family History Mother Family history of reaction to anesthesia nausea/vomiting Other No family history of allergies No family history of bleeding disorder Denies family history of Ovarian cancer Prostate cancer Hearing loss Heart disease Myocardial infarction Breast cancer Colorectal cancer Cancer Hypertension Stroke Asthma Social History Smoking Status: Current every day smoker Tobacco Type: E-cigarettes / Vaping Cigarettes Per Day: not even 1 cig per week; Second Hand Exposure: No; Do You Dip or Chew Tobacco: Yes (chews daily (advised NPO)); Hx Alcohol Use: Yes Alcohol type: beer, wine and hard liquor Hx Substance Use: Yes Non-Prescribed Medications: Marijuana Last Used Substance: Hours (ago) Last Used Substance Other:: history of cocaine use Substance Use Type Other:: medical card > uses daily for seizures Preferred Language: Tanzanian Communication Ability: Effective Librarian Head Required: No Beliefs That Will Affect Care: None marital status: Current Living Situation: Spouse Current Living Situation Comment: Lives with and 2 kids current occupational status: unemployed Feels Safe at Home: Yes Dental Care, Regularly: No Seatbelt Use: always Assistive Devices: None Physical Exam Vital Signs Vital Signs - 24 hr 01/09/25 15:43 01/09/25 17:00 01/09/25 17:14 Temperature 36.5 C Temperature Source Oral Pulse Rate 110 H 75 78 Pulse Rate from SpO2 Sensor 73 Respiratory Rate 22 Respiratory Effort / Characteristics Non-Labored Spontaneous Respiratory Depth Normal Blood Pressure 105/80 123/66 Blood Pressure Mean 88 84 Pulse Oximetry 96 Oxygen Delivery Method Room Air Sepsis Recent Fever Within 48 Hours No Sepsis New/Unexplained Change in Mental Status N/A Sepsis Action Taken by Nursing No Action Required 01/09/25 17:30 Temperature Temperature Source Pulse Rate 68 Pulse Rate from SpO2 Sensor 68 Respiratory Rate 14 Respiratory Effort / Characteristics Respiratory Depth Blood Pressure 102/50 L Blood Pressure Mean 64 Pulse Oximetry 96 Oxygen Delivery Method Sepsis Recent Fever Within 48 Hours Sepsis New/Unexplained Change in Mental Status Sepsis Action Taken by Nursing CONSTITUTIONAL: Healthy and well nourished. Alert and oriented X 3. Patient appears in moderate discomfort. HEENT: No scleral icterus or conjunctival injection. Mucous membranes are dry. RESPIRATORY: Clear to auscultation bilaterally with no wheezing, crackles, rhonchi or stridor. CARDIOVASCULAR: Regular rate and rhythm with no murmurs, rubs or gallops. GASTROINTESTINAL: Bowel sounds present in all quadrants. Patient has generalized left upper and epigastric tenderness to palpation. No rigidity, guarding or rebound. Negative CVA tenderness. Negative Dan sign, Rovsing sign and CVA tenderness. MUSCULOSKELETAL: Full range of motion of all joints without discomfort. INTEGUMENTARY: No rash or other significant dermatologic conditions noted. HEMATOLOGIC: No ecchymosis or petechiae. PSYCHIATRIC: Positive affect. NEUROLOGIC: No focal neurologic deficits noted. Course Course Patient history and physical exam were performed. Nursing notes were reviewed. Vital signs were reviewed and were normal. I did review outside medical records, showing that the patient had recent outpatient labs on 12/29/2024. He did have elevated LFTs at that time, with normal total bilirubin. The patient did not have a lipase level drawn on those labs. TSH was also elevated at 5.965, with a normal free T4. IV access was established, and labs were ordered and drawn. The patient was hydrated with a liter of normal saline, and administered IV morphine, Zofran and Pepcid. ECG was performed, showing a normal sinus rhythm. The patient was placed on environmental monitoring specialist while in the emergency department. Portable chest x- ray was normal. Further review of labs shows a relatively normal CBC. Coag studies are normal. CMP shows a mild hypokalemia. Patient does have elevated AST. I did review prior medical records, showing the patient was recently diagnosed with hepatitis C. Further review of labs shows an elevated total creatinine kinase of 396, as well as troponin at 36.5. Lipase was normal. TSH is elevated with normal free T4. Urinalysis shows 2+ proteinuria, ketonuria, 3+ bilirubinemia as well as white blood cells, epithelial cells and no bacteria or nitrites. Calcium oxalate, hyaline casts and urine mucus are also present. Upon further questioning, the patient denies any recent physical activity. He does report that his father had a history of heart attack at an early age. Patient denies any other medical issues such as hypertension or hypercholesterolemia. CT with IV contrast of the abdomen and pelvis, as well as CT angiography of the chest did not show any concerning findings. Findings were discussed with the patient, who did agree to hospitalist evaluation. I then reached out to the [facility] hospitalist service, who did agree to evaluate the patient. Please see their dictation for further treatment and final disposition. The case was also discussed with Dr. Oliver, ED attending physician, who agrees with workup and hospitalist evaluation. After transfer of care to the hospitalist service, it is noted that the patient's repeat 2-hour troponin had slightly increased from the previous to 41.6. Urine drug screen was also positive for amphetamines, MDMA, marijuana and opiates. Administered Medications Sodium Chloride (Nss) 1,000 mls @ 80 mls/hr IV .[id number] FREEMAN Stop: 01/12/25 21:04 Last Admin: 01/09/25 21:55 Dose: 80 mls/hr Documented By: CHRISTIANO Pantoprazole Sodium (Protonix) 40 mg in 10 mls @ 5 mls/min IV BID FREEMAN Stop: 02/08/25 21:04 Last Admin: 01/09/25 21:52 Dose: 5 mls/min Documented By: CHRISTIANO Ondansetron HCl (Ondansetron Inj 2 Mg/Ml 2 Ml Vial) 4 mg IV Q4H PRN PRN Reason: Nausea Stop: 02/08/25 21:04 Last Admin: 01/09/25 22:02 Dose: 4 mg Documented By: CHRISTIANO Quetiapine Fumarate (Quetiapine Fumarate 100 Mg Tablet) 100 mg PO HS FREEMAN Stop: 02/08/25 21:29 Last Admin: 01/09/25 22:07 Dose: 100 mg Documented By: CHRISTIANO Discontinued Medications Sodium Chloride (Nss) 1,000 mls @ 999 mls/hr IV .Q1H1M STA Stop: 01/09/25 16:56 Last Infusion: 01/09/25 17:55 Dose: Infused Documented By: Admin: 01/09/25 16:12 Dose: 999 mls/hr Documented By: DERRICK Famotidine (Pepcid 20mg Iv Push) 20 mg in 5 mls @ 2.5 mls/min IV NOW STA Stop: 01/09/25 16:00 Last Admin: 01/09/25 16:11 Dose: 2.5 mls/min Documented By: DERRICK Ioversol (Optiray 320 125ml) 115 ml IV ONCE ONE Stop: 01/09/25 17:20 Last Admin: 01/09/25 17:20 Dose: 115 ml Documented By: AMMON Morphine Sulfate (Morphine Sulfate 4 Mg/Ml 1 Ml Carp\\Vial) 4 mg IV NOW STA Stop: 01/09/25 15:57 Last Admin: 01/09/25 16:12 Dose: 4 mg Documented By: DERRICK Morphine Sulfate (Morphine Sulfate 4 Mg/Ml 1 Ml Carp\\Vial) 4 mg IV NOW STA Stop: 01/09/25 18:21 Last Admin: 01/09/25 18:29 Dose: 4 mg Documented By: MEGHA Ondansetron HCl (Ondansetron Inj 2 Mg/Ml 2 Ml Vial) 4 mg IV NOW STA Stop: 01/09/25 15:57 Last Admin: 01/09/25 16:12 Dose: 4 mg Documented By: DERRICK Medical Decision Making Medical Records Attestation: I reviewed the patient's medical records. Home Medications was personally reviewed by me Laboratory Data Attestation: I reviewed the patient's lab results. 01/09/25 16:01 01/09/25 16:01 Lab Results 01/09/25 01/09/25 Range/Units 16:01 18:21 WBC 7.65 (4.8-10.8) K/ul RBC 5.36 (4.70-6.10) M/uL Hgb 15.8 (14.0-18.0) g/dl Hct 46.6 (42.0-52.0) % MCV 86.9 (80.0-100.0) fL MCH 29.5 (25.0-34.0) pg MCHC 33.9 (32.0-36.0) g/dL RDW Std Deviation 38.7 (36.4-46.3) fL RDW Coeff of Scot 12.2 (11.5-14.5) % Plt Count 357 (130-400) K/uL MPV 9.9 (9.4-12.4) fL Immature Gran % (Auto) 0.3 % Neut % (Auto) 50.1 % Lymph % (Auto) 32.2 % [place] % (Auto) 10.3 % Eos % (Auto) 5.8 % Baso % (Auto) 1.3 % Neut # (Auto) 3.84 (1.40-6.50) K/uL Lymph # (Auto) 2.46 (1.20-3.40) K/uL [place] # (Auto) 0.79 H (0.11-0.59) K/uL Eos # (Auto) 0.44 (0.00-0.50) K/uL Baso # (Auto) 0.10 (0.00-0.20) K/uL Immature Gran # (Auto) 0.02 (0.01-0.20) K/uL PT 10.9 (9.0-12.0) Seconds INR 1.0 (0.9-1.1) Sodium 137 (136-145) mmol/L Potassium 3.4 L (3.5-5.1) mmol/L Chloride 101 (98-107) mmol/L Carbon Dioxide 23 (21-32) mmol/L Anion Gap 13 H (3-11) BUN 20 (6-23) mg/dl Creatinine 1.21 (0.6-1.4) mg/dl Est Cr Clr Drug Dosing 90.2 ml/min eGFR 81.08 BUN/Creatinine Ratio 16.5 (10-20) Glucose 116 H (70-99(Fasting)) mg/dl Calcium 10.1 (8.6-10.3) mg/dl Total Bilirubin 0.9 (0.2-1.0) mg/dl AST 46 H (13-39) U/L ALT 34 (7-52) U/L Alkaline Phosphatase 70 (34-104) U/L Total Creatine Kinase 796 H (30-223) U/L Troponin I High Sens 36.5 H 41.6 H (0-20) pg/ml Total Protein 8.4 H (6.0-8.3) gm/dl Albumin 4.7 (3.4-5.0) gm/dl Globulin 3.7 (2.5-4.0) gm/dl Albumin/Globulin Ratio 1.3 (0.9-2) Lipase 9 L (11-82) U/L TSH 5.782 H (0.300-4.500) uIu/ml Free T4 1.35 (0.61-1.60) ng/dl Urine Color Yellow Urine Appearance Clear (Clear) Urine pH 5.5 (4.5-7.5) Ur Specific [place] >= 1.030 (1.000-1.030) Urine Protein 2+ H (Negative) Urine Glucose (UA) Negative (Negative) Urine Ketones 2+ H (Negative) Urine Blood Negative (Negative) Urine Nitrite Negative (Negative) Urine Bilirubin 3+ H (Negative) Urine Urobilinogen Negative (Negative) Ur Leukocyte Esterase Negative (Negative) Urine WBC (Auto) 6-10 H (0-5) /hpf Urine RBC (Auto) 3-5 H (0-2) /hpf U Hyaline Cast (Auto) >20 H (0-2) /lpf U Epithel Cells (Auto) 6-10 H (0-2) /hpf Urine Bacteria (Auto) None Seen (None Seen) Calcium Oxalate Crystal Present A (None Prsent) Hyaline Casts Present A (None Presnt) /lpf Urine Mucus Present A (None Prsent) Urine Comment Imaging Data Attestation: I personally reviewed and interpreted this imaging study as follows: My Impression: My interpretation of reportable chest x-ray does not show any pneumothorax, subdiaphragmatic air, cardiomegaly or pulmonary consolidations. My interpretation of CT without contrast of the abdomen and pelvis does not show evidence for pancreatitis, bowel obstruction, appendicitis, diverticulitis or other acute findings. My interpretation of CT angiography of the chest does not show evidence for any pericardial effusion, pulmonary emboli, pneumonia, pneumothorax or other concerning findings. Radiologist reports were also reviewed with concurrence. Radiologist's Impression: Abdomen/Pelvis CT 01/09/25 15:56 Exam: The abdomen pelvis with contrast. Exam reason: Epigastric pain. Elevated troponin. Comparison: 08/23/2020. Technique: Multiple transvaginal images of the abdomen pelvis were obtained following the intravenous administration of contrast. Findings: The visualized portions of the lung bases are unremarkable. No focal abnormalities noted within the liver or spleen. Adrenals and pancreas are within normal limits. The gallbladder is unremarkable there is normal enhancement of the kidneys bilaterally. There is no evidence of obstructing stone or hydronephrosis. The bowel loops are of normal caliber. The bladder is unremarkable. There is no free air, free fluid or inflammatory change. The appendix is normal in course and caliber no acute bony adenopathy is identified. Impression: 1. Unremarkable abdomen and pelvis. Electronically signed by Kolton Patel 01-09-2025 5:56 PM Chest X-Ray 01/09/25 15:56 Exam: AP Portable Chest Exam reason: Epigastric pain Comparison: 11/15/2020 Technique: A single AP portable view of the chest was obtained Findings: The lungs are well-expanded. No focal areas of consolidation are identified. The cardiac and mediastinal silhouettes are within normal limits. There is no pneumothorax and no acute bony abnormalities are seen. Impression: No acute cardiopulmonary abnormalities Electronically signed by Kolton Patel 01-09-2025 4:20 PM Chest CTA 01/09/25 16:52 Exam: CT angiogram of the chest. Exam reason: Back pain. Elevated troponin. Comparison: 11/15/2020. Technique: Multiple transvaginal images of the chest were obtained using 1.25 mm axial slice thickness after the intravenous administration of contrast. Images were acquired in the arterial phase of contrast distribution and also reconstructed in the coronal MIP. Findings: There is no evidence of acute pulmonary embolus to the level of the proximal segmental branches of the pulmonary arteries. No pulmonary parenchymal abnormalities are seen. There is no pneumothorax. There are no pleural or pericardial effusions. The heart and great vessels are within normal limits. No endobronchial lesions are identified. No acute bony abnormalities are noted. The visualized portions of the upper abdomen are unremarkable. Impression: 1. No evidence of acute pulmonary embolus to the level of the proximal segmental branches of the pulmonary arteries. Electronically signed by Kolton Patel 01-09-2025 5:44 PM ECG Data Attestation: I personally reviewed and interpreted this ECG as follows: Indication: + abdominal pain, + back/shoulder pain, + chest pain and + nausea Rate (beats per minute): 78 Rhythm: + normal sinus ECG Intervals/blocks: + Normal QRS and + Normal QT ECG [place]: + Normal ECG ST segments: + Normal ST segments Comparison ECG Date: from (10/17/2022) Change: no significant change MDM Narrative Cardiac monitoring: An order was placed for continuous cardiac monitoring. The monitor shows a rate of 78 bpm with a normal sinus rhythm. youth nutritional monitor history was reviewed throughout the evaluation, and no dysrhythmias were noted. See ED Course section for further details of today's visit. Patient presents with complaint of epigastric pain radiating into the center of the chest. Patient does report a prior history of pancreatitis, and reports that this feels the same. He is workup today, however, is not suggestive of pancreatitis. Patient does have an elevated troponin with normal ECG. Chest CT angiography does not show any other concerning intrathoracic findings, including pericarditis. CT of the abdomen also did not show any other concerning findings. Laboratory studies are not suggestive of cholecystitis or UTI, although he does have a rather concerning urinalysis finding. Given his elevated troponin and total CK, I did recommend further hospitalist evaluation, and the patient was in agreement with this plan. The case was then discussed with the [facility] hospitalist service, who was in agreement to evaluate the patient. Please see their dictation for further treatment and final disposition. The case was also discussed with Dr. Oliver, ED attending physician, who also agrees with workup and hospitalist evaluation. Impression Acute epigastric pain, Elevated troponin I level, Elevated creatine kinase level Discharge Plan Visit Data Chief Complaint: Abdominal Pain Stated Complaint: VOMITING,ABDOMEN/BACK PAIN ED Provider: Tonie Oliver ED Midlevel Provider: Jeremy Huitron Discharge Problem: Acute epigastric pain, Elevated troponin I level, Elevated creatine kinase level Patient Disposition: Admitted As Inpatient Condition: Fair Discharge Instructions Interventions: ED Discharge Assessment Last Done: 01/09/25 20:50 ED DC CONDITION Conditon at Discharge Condition at Discharge: Fair
[2025-01-09] MEDS: FAMOTIDINE 20MG IV PUSH 20 MG/5 ML SYR IV STA (16:11)
[2025-01-09] MEDS: SODIUM CHLORIDE 0.9% 1,000 ML IV STA (16:12)
[2025-01-09] MEDS: MoRPHine SULFATE 4 MG/ML 1 ML CARP\\VIAL IV STA ×2 (16:12→18:29)
[2025-01-09] MEDS: ONDANSETRON INJ 2 MG/ML 2 ML VIAL IV STA (16:12)
--- NOTE | 2025-01-09 16:20 | XRay Report ---
Exam: AP Portable Chest Exam reason: Epigastric pain Comparison: 11/15/2020 Technique: A single AP portable view of the chest was obtained Findings: The lungs are well-expanded. No focal areas of consolidation are identified. The cardiac and mediastinal silhouettes are within normal limits. There is no pneumothorax and no acute bony abnormalities are seen. Impression: No acute cardiopulmonary abnormalities Electronically signed by Kolton Patel 01-09-2025 4:20 PM
[2025-01-09 16:21] LABS: Hematocrit (blood only) 46.6 % (42.0-52.0); Hemoglobin 15.8 g/dl (14.0-18.0); Immature Granulocytes # (auto) 0.02 K/uL (0.01-0.20); Immature Granulocytes % (auto) 0.3 %; Mean Corpuscular Hemoglobin 29.5 pg (25.0-34.0); Mean Corpuscular Volume 86.9 fL (80.0-100.0); Platelet Count 357 K/uL (130-400); RDW Standard Deviation 38.7 fL (36.4-46.3); Red Blood Count 5.36 M/uL (4.70-6.10); White Blood Count 7.65 K/ul (4.8-10.8)
[2025-01-09 16:23] LABS: Appearance Urine Clear (Clear); Glucose Urine UA Negative (Negative)
[2025-01-09 16:40] LABS: Alanine Aminotransferase 34.0 U/L (7-52); Albumin Globulin Ratio 1.3 (0.9-2); Albumin Level 4.7 gm/dl (3.4-5.0); Alkaline Phosphatase 70.0 U/L (34-104); Anion Gap 13.0 (3-11); Bilirubin,Total 0.9 mg/dl (0.2-1.0); Blood Urea Nitrogen 20.0 mg/dl (6-23); Calcium 10.1 mg/dl (8.6-10.3); Carbon Dioxide 23.0 mmol/L (21-32); Chloride 101.0 mmol/L (98-107); Creatinine Clr Calc Pharmacy 90.2 ml/min; Globulin 3.7 gm/dl (2.5-4.0); Glucose 116.0 mg/dl (70-99(Fasting)); Lipase 9.0 U/L (11-82); Potassium 3.4 mmol/L (3.5-5.1); Sodium 137.0 mmol/L (136-145); Total Protein 8.4 gm/dl (6.0-8.3)
[2025-01-09 16:51] LABS: Bacteria Urine Automated None Seen (None Seen); Cast Urine Automated >20 /lpf (0-2)
[2025-01-09 16:53] LABS: INR 1.0 (0.9-1.1); Prothrombin Time 10.9 Seconds (9.0-12.0)
[2025-01-09 16:57] LABS: Thyroid Stimulating Hormone 5.782 uIu/ml (0.300-4.500)
[2025-01-09 17:04] LABS: Creatine Kinase 796.0 U/L (30-223)
[2025-01-09] MEDS: OPTIRAY 320 125ml IV ONE (17:20)
[2025-01-09 17:32] LABS: T4 Free Thyroxine 1.35 ng/dl (0.61-1.60)
--- NOTE | 2025-01-09 17:44 | CT Scan Report ---
Exam: CT angiogram of the chest. Exam reason: Back pain. Elevated troponin. Comparison: 11/15/2020. Technique: Multiple transvaginal images of the chest were obtained using 1.25 mm axial slice thickness after the intravenous administration of contrast. Images were acquired in the arterial phase of contrast distribution and also reconstructed in the coronal MIP. Findings: There is no evidence of acute pulmonary embolus to the level of the proximal segmental branches of the pulmonary arteries. No pulmonary parenchymal abnormalities are seen. There is no pneumothorax. There are no pleural or pericardial effusions. The heart and great vessels are within normal limits. No endobronchial lesions are identified. No acute bony abnormalities are noted. The visualized portions of the upper abdomen are unremarkable. Impression: 1. No evidence of acute pulmonary embolus to the level of the proximal segmental branches of the pulmonary arteries. Electronically signed by Kolton Patel 01-09-2025 5:44 PM
--- NOTE | 2025-01-09 17:57 | CT Scan Report ---
Exam: The abdomen pelvis with contrast. Exam reason: Epigastric pain. Elevated troponin. Comparison: 08/23/2020. Technique: Multiple transvaginal images of the abdomen pelvis were obtained following the intravenous administration of contrast. Findings: The visualized portions of the lung bases are unremarkable. No focal abnormalities noted within the liver or spleen. Adrenals and pancreas are within normal limits. The gallbladder is unremarkable there is normal enhancement of the kidneys bilaterally. There is no evidence of obstructing stone or hydronephrosis. The bowel loops are of normal caliber. The bladder is unremarkable. There is no free air, free fluid or inflammatory change. The appendix is normal in course and caliber no acute bony adenopathy is identified. Impression: 1. Unremarkable abdomen and pelvis. Electronically signed by Kolton Patel 01-09-2025 5:56 PM
--- NOTE | 2025-01-09 19:04 | History & Physical Report ---
Date of Service January 09, 2025 Assessment & Plan (1) Viral gastritis: Plan: Probable cause of epigastric discomfort, nausea, vomiting. IV fluids. Symptomatic treatment of nausea. IV Protonix (2) Elevated creatine kinase level: Plan: Mild. Probably from muscle strain related to emesis. IV fluids. Serial labs (3) Chest pain: Plan: Resolved. Doubt ACS. No acute EKG changes. No current chest discomfort. Telemetry. Serial troponin enzymes ordered (4) Depression: Plan: Previous history of suicide attempt. Currently stable. Continue current medical management Plan Hopeful discharge to home tomorrowJanuary 10 History of Present Illness Chief Complaint: Several days of nausea and vomiting, epigastric discomfort, chest pain, mildly elevated troponin and mildly elevated CK. Primary Care Provider: Tiarra Oquendo MD 34-year-old white male with several days of nausea and vomiting. He denies hematemesis or hematochezia or melena. In fact he states he has been constipated for several days. He had epigastric and chest discomfort and thought he may be having another bout of pancreatitis. However, lipase is normal. Chest CTA reveals no evidence of PE. EKG reveals normal sinus rhythm with no evidence of acute changes. Troponin is mildly elevated at 36. CK is mildly elevated at 796 probably from muscle straining related to emesis. Potassium slightly low at 3.4. He is admitted for further evaluation and treatment. No syncope and no palpitations. Allergies Allergy/AdvReac Type Severity Reaction Status Date / Time sulfamethoxazole Allergy Intermediate hives Verified 12/29/24 09:19 trimethoprim Allergy Intermediate hives Verified 12/29/24 09:19 Bactrim Allergy Unknown hives Verified 11/13/17 12:18 Home Medications Medication Instructions Recorded Confirmed Type escitalopram oxalate 10 mg tablet 10 mg PO DAILY #30 tabs 12/29/24 01/09/25 Rx (Lexapro) lamotrigine 100 mg tablet 100 mg PO DAILY #30 tabs 12/29/24 01/09/25 Rx (Lamictal) quetiapine 100 mg tablet (Seroquel) 100 mg PO DAILY #30 tabs 12/29/24 01/09/25 Rx levothyroxine 137 mcg tablet 137 mcg PO DAILY #30 tabs 01/01/25 01/09/25 Rx buprenorphine 8 mg-naloxone 2 mg 0.5 film sublingual BID 01/09/25 01/09/25 History sublingual film Past Med/Surg History Problem List Depression Chest pain Viral gastritis Elevated creatine kinase level (Acute) Elevated troponin I level (Acute) Acute epigastric pain (Acute) Suicide attempt by hanging Imprisonment and other incarceration Depression with anxiety H/O arthroscopic knee surgery Thoracic compression fracture FUO (fever of unknown origin) LFT elevation Body aches (Acute) Weakness (Acute) Tobacco use Foreign body of left hand (Chronic) Right wrist pain (Chronic) Right shoulder pain (Chronic) Derangement of meniscus of left knee due to old injury (Chronic) Medical marijuana use (Chronic) Routine health maintenance (Chronic) Memory impairment of gradual onset (Chronic) Finger infection (Acute) Subungual hematoma of finger of left hand Puncture wound of finger of left hand Scapular dyskinesis Cervical radiculopathy Stroke H/O concussion Headache Insomnia (Chronic) H/O stroke without residual deficits Patient request for diagnostic testing Seizure Demyelinating disease Demyelinating disease Right inguinal pain Testicular pain, right Tinnitus of both ears Acquired deviated nasal septum Lump in the groin (Acute) Abdominal pain Change in bowel habits Snoring Witnessed apneic spells Fatigue Sleep disturbances Encounter for pre-operative examination Irritable bowel syndrome with diarrhea Tear of medial meniscus of left knee Bilateral varicoceles Knee pain, left Headache Seizure-like activity Dream enactment behavior Varicocele Encounter for vasectomy counseling Strain of tendon of left rotator cuff Foreign body of hand Encounter for pre-operative examination Seizure disorder (Acute) Migraine Abdominal pain resolved Tinnitus Hyperthyroidism (Chronic) no current medications, monitoring levels currently Marijuana user (Acute) medical card History of foot surgery x2 RIGHT FOOT - Hardware implanted 10/2010, Hardware removal - 10/2011 Medical History Pancreatitis resolved per pt REM sleep behavior disorder COVID-19 virus detected 05/02/20> [facility] > no hospitalization > no symptoms Abnormal MRI of head ? per pt--lesions on brain?? Osteoarthritis right foot History of stroke unknown when, unknown cause--found on an MRI--follows with Dr. Ndiaye--no deficits Seizure 11/15/20 > lasted approx 2 mins--grand mal--unknown cause, follows with Dr. Ndiaye Anxiety Cocaine use Bipolar disorder, unspecified Cannabis abuse, uncomplicated Chronic hepatitis Hepatitis C Opioid abuse, uncomplicated Hepatitis C resolved per pt Surgical History History of esophagogastroduodenoscopy (EGD) History of colonoscopy History of tonsillectomy and adenoidectomy Status post wisdom tooth extraction Family History Mother Family history of reaction to anesthesia nausea/vomiting Other No family history of allergies No family history of bleeding disorder Denies family history of Ovarian cancer Prostate cancer Hearing loss Heart disease Myocardial infarction Breast cancer Colorectal cancer Cancer Hypertension Stroke Asthma Social History Smoking Status: Current every day smoker Tobacco Type: E-cigarettes / Vaping Cigarettes Per Day: not even 1 cig per week; Second Hand Exposure: No; Do You Dip or Chew Tobacco: Yes (chews daily (advised NPO)); Hx Alcohol Use: Yes Alcohol type: beer, wine and hard liquor Hx Substance Use: Yes Non-Prescribed Medications: Marijuana Last Used Substance: Hours (ago) Last Used Substance Other:: history of cocaine use Substance Use Type Other:: medical card > uses daily for seizures Preferred Language: Sinhala Communication Ability: Effective [employer] Required: No Beliefs That Will Affect Care: None marital status: Current Living Situation: Spouse Current Living Situation Comment: Lives with and 2 kids current occupational status: unemployed Feels Safe at Home: Yes Dental Care, Regularly: No Seatbelt Use: always Assistive Devices: None Review of Systems 2 Review of Systems: Constitutionalno fever or chills ENTno blurred vision, no double vision, no epistaxis, no sore throat Respiratoryno cough, no wheezing, no shortness of breath Cardiacno palpitations, no chest pain, no syncope GInausea vomiting and constipation. No hematemesis. No melena or hematochezia GUno urinary retention, no urinary incontinence, no dysuria, no hematuria Musculoskeletalno joint pain, no muscle tenderness Skinno bruising, no rashes, no pruritus Neurono isolated weakness, no paresthesia, no weakness Psychno depression, no anxiety Physical Exam 2 Physical Exam: General-alert and oriented x3, no fever, no chills HEENT-head atraumatic and normocephalic, pupils equal and reactive to light, extraocular muscles intact Neck-no lymphadenopathy or thyromegaly, trachea midline Chest-clear to auscultation. No rales, wheezing or rhonchi Cardiac-regular rate and rhythm, normal S1 and S2 Abdomen-normal bowel sounds, no hepatosplenomegaly. Mild diffuse abdominal tenderness to palpation. No rebound or guarding. No masses Extremities-no cyanosis, clubbing, or edema Neuro-cranial nerves II through XII intact, motor and sensory function within normal limits, strength symmetrical, no focal deficits Psych-normal affect, normal mood Results & Data Results & Data Vital Signs (Past 12 Hours) Vital Signs Temp Pulse Resp BP Pulse Ox O2 Del Method 01/09/25 17:30 68 14 102/50 L 96 01/09/25 17:14 78 01/09/25 17:00 75 123/66 01/09/25 15:43 36.5 C 110 H 22 105/80 96 Room Air Laboratory Results 01/09/25 16:01 01/09/25 16:01 Code Status & VTE Plan Code Status Full code PG Care Time/CCT Total # of Minutes Spent Total Time Spent with Patient: Total time spent is greater than 50% in coordination of care (as documented) at patient's floor/unit and/or counseling patient: Coding Level of Care Code 06629 INT INP/OBS CARE 3/75MIN Diagnoses Viral gastritis K29.70 Elevated creatine kinase level R74.8 Chest pain R07.9 Depression F32.A
[2025-01-09 20:07] LABS: Amphetamines+Metham, Urine Pos (Neg); MDMA (Ecstacy), Urine Pos (Neg); Marijuana, Urine Pos (Neg)
[2025-01-09] MEDS ORDERED: ACETAMINOPHEN 325 MG TAB PO PRN (21:05)
[2025-01-09] MEDS: PANTOprazole 40 MG/10 ML SYR IV SCH (21:52)
[2025-01-09] MEDS: SODIUM CHLORIDE 0.9% 1,000 ML IV SCH (21:55)
[2025-01-09] MEDS: ONDANSETRON INJ 2 MG/ML 2 ML VIAL IV PRN (22:02)
[2025-01-09] MEDS ORDERED: NICOTINE 14 MG/24 HR PATCH TD SCH (23:00)
[2025-01-09] MEDS: NICOTINE 14 MG/24 HR PATCH TD SCH (23:10)
[2025-01-10] MEDS ORDERED: COUGH DROP (SUGAR FREE) LOZ 24 LOZ/1 BOX BUCCAL PRN (01:33)
[2025-01-10 06:16] LABS: Creatine Kinase 555.0 U/L (30-223)
[2025-01-10] MEDS: LEVOTHYROXINE SODIUM 137 MCG TABLET PO SCH (06:17)
[2025-01-10 08:07] VITALS: BP 115/71; RESP 18; TEMP 97.3; O2SAT 97
[2025-01-10] MEDS: lamoTRIgine 100 MG TAB PO SCH (09:15)
[2025-01-10] MEDS: ESCITALOPRAM OXALATE 10 MG TAB PO SCH (09:15)
[2025-01-10] MEDS: POTASSIUM CHLORIDE CRTAB 20 MEQ TABCR PO STA (09:24)
[2025-01-10] MEDS ORDERED: NICOTINE POLACRILEX 2 MG GUM MT PRN (10:05)
--- NOTE | 2025-01-10 10:32 | Discharge Summary ---
Discharge Summary Date of Service January 10, 2025 Principal Dx & Hospital Course #1 = Principal Diagnosis (1) Viral gastritis: Suspected viral etiology of epigastric discomfort, nausea, vomiting. Now resolved. Treated while hospitalized with IV fluids, symptomatic treatment of nausea, IV Protonix (2) Elevated creatine kinase level: Mild. Now declining and is currently of no clinical significance. Probably from muscle strain related to emesis. Treated while hospitalized with IV fluids. (3) Chest pain: Resolved. Doubt ACS. No acute EKG changes. No current chest discomfort. Telemetry. Serial troponin enzymes are not trending (4) Depression: Previous history of suicide attempt. Currently stable. Continue current medical management (5) Hypokalemia: Mild. Oral supplementation administered Plan Home today, January 10 Admission HPI Per Admitting Provider 34-year-old white male with several days of nausea and vomiting. He denies hematemesis or hematochezia or melena. In fact he states he has been cons tipated for several days. He had epigastric and chest discomfort and thought he may be having another bout of pancreatitis. However, lipase is normal. Chest CTA reveals no evidence of PE. EKG reveals normal sinus rhythm with no evidence of acute changes. Troponin is mildly elevated at 36. CK is mildly elevated at 796 probably from muscle straining related to emesis. Potassium slightly low at 3.4. He is admitted for further evaluation and treatment. No syncope and no palpitations. Discharge Exam General-alert and oriented x3, no fever, no chills HEENT-head atraumatic and normocephalic, pupils equal and reactive to light, extraocular muscles intact Neck-no lymphadenopathy or thyromegaly, trachea midline Chest-clear to auscultation. No rales, wheezing or rhonchi Cardiac-regular rate and rhythm, normal S1 and S2 Abdomen-normal bowel sounds, no hepatosplenomegaly. Mild diffuse abdominal tenderness to palpation present on admission has now resolved. No rebound or guarding. No masses Extremities-no cyanosis, clubbing, or edema Neuro-cranial nerves II through XII intact, motor and sensory function within normal limits, strength symmetrical, no focal deficits Psych-normal affect, normal mood Discharge Plan Discharge Items Patient Disposition: Home - Self-Care Reason For Visit: N/V, ELEVATED TROPONIN, ELEVATED CK Discharge Diagnosis: Suspected viral gastritis with nausea and vomiting, elevated CK level thought to be secondary to emesis, noncardiac chest pain, hypokalemia Condition on Discharge: Good Activity: Resume your previous activity Non-emergency contact: Primary Care Provider Call non-emergency contact if: your symptoms worsen Follow-up/Referrals: Tiarra Oquendo MD [Primary Care Provider] - Diet: Regular Addtl Attending Provider Instructions: All medications remain the same. See primary care provider as soon as possible for follow-up Pending Studies at Discharge: No Stand-Alone Forms: My [facility] [employer], Smoking Cessation Medications and DC Order Prescriptions: Continued levothyroxine 137 mcg tablet 137 mcg PO DAILY Qty: 30 5RF lamotrigine [Lamictal] 100 mg tablet 100 mg PO DAILY Qty: 30 6RF quetiapine [Seroquel] 100 mg tablet 100 mg PO DAILY Qty: 30 6RF escitalopram oxalate [Lexapro] 10 mg tablet 10 mg PO DAILY Qty: 30 6RF buprenorphine-naloxone 8-2 mg film 0.5 film sublingual BID Discharge Orders: Discharge Order (Routine); Ordered 01/10/25 Ordered By: Daniele Solomon Admission Data Admit Date/Time: 01/09/25 18:46 Attending Provider: Daniele Solomon Admit Provider: Daniele Solomon Primary Care Provider: Tiarra Oquendo Other Providers: Daniele Solomon Hospital Stay Data Consultations 01/09/25 20:37 ED Decision to Admit Stat Diagnostic Imagining Performed 01/09/25 15:56 CT abd pelvis IV con only Stat 01/09/25 16:52 CT angio chest PE protocol Stat Pending Results Patient Have Any Pending Studies at Discharge: No Discharge Instructions Given to Patient (Per Discharging Provider) All medications remain the same. See primary care provider as soon as possible for follow-up Total Time Total Time Spent Total Time Spent (In Minutes): 45 minutes Coding Level of Care Code 12286 INP/OBS DISCH >30 MIN Diagnoses Viral gastritis K29.70 Elevated creatine kinase level R74.8 Chest pain R07.9 Depression F32.A Hypokalemia E87.6
[2025-01-10] MEDS: REMOVE NICODERM PATCH SCH (10:37)
[2025-01-10 11:22] VITALS: PULSE 56
--- NOTE | 2025-01-10 19:31 | Electrocardiogram Report ---
Test Reason : Blood Pressure : */* mmHG Vent. Rate : 54 BPM Atrial Rate : 54 BPM P-R Int : 144 ms QRS Dur : 94 ms QT Int : 458 ms P-R-T Axes : 36 13 7 degrees QTcB Int : 434 ms Poor data quality, interpretation may be adversely affected Sinus bradycardia Otherwise normal ECG When compared with ECG of 17-Oct-2022 09:06, No significant change was found Confirmed by Yuval Hernandez ([id number]) on 01/10/2025 7:30:43 PM Referred By: REFERRED SELF Confirmed By: Yuval Hernandez
--- NOTE | 2025-01-12 06:03 | Electrocardiogram Report ---
Test Reason : Blood Pressure : */* mmHG Vent. Rate : 78 BPM Atrial Rate : 78 BPM P-R Int : 140 ms QRS Dur : 90 ms QT Int : 374 ms P-R-T Axes : 45 38 26 degrees QTcB Int : 426 ms Normal sinus rhythm Normal ECG When compared with ECG of 17-Oct-2022 09:06, No significant change was found Confirmed by Tito De Jesus ([id number]) on 01/12/2025 6:03:25 AM Referred By: REFERRED SELF Confirmed By: Tito De Jesus
[2025-01-12 11:53] LABS: Chlam trach RNA(Genit,Ureth,Ur Not Detected (NotDetected); GC(Neis gon)RNA(Genit,Ureth,Ur Not Detected (NotDetected)
[2025-01-17 12:07] LABS: Amphetamine Urine, Confirm 1301 ng/mL (<250); Hydrocodone Urine NEGATIVE ng/mL (<50); Hydromor Urine NEGATIVE ng/mL (<50); MDA negative; MDEA negative; MDMA (Ecstasy) Urine, Confirm negative; Marijuana Quant, GCMS Urine 1098 ng/mL (<5); Methamphetamine, Ur Confirm 9008 ng/mL (<250); Noroxycodone Urine NEGATIVE ng/mL (<50); Oxymorph Urine NEGATIVE ng/mL (<50)
== END 2025-01-10 12:28 | disposition home or self-care (01) | DRG 392 ==
LOC: SUATTDRO → ED 15:39 → 2N 18:46 → INTOOBSV 18:46 → 2N 20:50